=== PATIENT | female | born 1950 | race Caucasian/White ===

== ENCOUNTER 2024-08-11 16:45 | Inpatient (IN) | payer MEDICARE, MEDICAID, SELFPAY ==
--- NOTE | ~2024-08-11 | XR_ITS ---
EXAMINATION: XR surgery orthopedic DATE: 08/12/2024 16:22 INDICATION: Left hip intertrochanteric nailing TECHNIQUE: 5 fluoroscopic images of the left hip and proximal femur were obtained during procedure pe rformed by Dr. Salvador. Radiologist was not present for the imaging or procedure. The amount of fluo roscopy time used during this procedure was 2.0 minutes. Total DAP was 3.485 Gycm^2 COMPARISON: 08/11/2024 FINDINGS: Interval open reduction internal fixation of previous noted intratrochanteric fracture of the proxima l left femur which is now in near-anatomic alignment. The fracture is fixed with an antegrade intrame dullary kirsten and femoral neck dynamic compression screw. No new fractures identified. IMPRESSION: 1. Fluoroscopy utilized during reduction and internal fixation of a comminuted intertrochanteric frac ture of the proximal left femur. Reviewed, dictated and finalized at location B. RTURE CLERK IMPRESSION: 1. Fluoroscopy utilized during reduction and internal fixation of a comminuted intertrochanteric fracture of the proximal left femur.
--- NOTE | ~2024-08-11 | XR_ITS ---
HISTORY: fall, hip pain/deformity COMPARISON: None TECHNIQUE: 2 views of the left hip along with an AP view of the pelvis FINDINGS: Acute minimally displaced intertrochanteric fracture of the left femur with lateral and superior dist raction of the fracture fragment. Diffuse bony demineralization The right hip demonstrates degenerative osteoarthritis but is otherwise unremarkable. Fixation hardware within the lumbar spine. Densely calcified atherosclerotic disease. Calcified fibroid within the right hemipelvis. Fecal stasis within the colon IMPRESSION: Acute intertrochanteric fracture, as detailed above. Reviewed, dictated and finalized at location A. ER MACHINE SET UP OPERATOR
--- NOTE | ~2024-08-11 | XR_ITS ---
CHEST RADIOGRAPH CLINICAL HISTORY: POSSIBLE HIP FX . COMPARISON: None available TECHNIQUE: Single portable view of the chest. FINDINGS The left mid lung is partially obscured due to pacemaker generator. Wires project over the right atrium and right ventricle. The remainder of the cardiomediastinal silhouette is otherwise unremarkable. The lungs are otherwise clear. IMPRESSION: No focal infiltrate or effusion. Reviewed, dictated and finalized at location A. ER OPERATOR ASBESTOS SHINGLE
[2024-08-11 16:46] VITALS: BP 150/86; TEMP 36.4; O2SAT 90
[2024-08-11] MEDS: ONDANSETRON INJ 4 MG/2 ML VIAL IV PUSH (17:27)
[2024-08-11] MEDS: MORPHINE SULFATE (*CRX) 2 MG/ML INJ IV PUSH ×2 (17:27→22:32)
--- NOTE | 2024-08-11 17:38 | ED.LOWEXIN ---
HPI - Extremity Injury (Lower) General Chief Complaint: Extremity Injury, Lower <Loyda Mak PA-C - Last Filed: 08/12/24 00:20> Stated Complaint: left hip pain - deformity <PATRICK Salazar Last Filed: 08/12/24 00:20> Time Seen by Provider: 08/11/24 16:59 <PATRICK Salazar Last Filed: 08/12/24 00:20> Source: patient <PATRICK Salazar Last Filed: 08/12/24 00:20> Mode of arrival: EMS <PATRICK Salazar Last Filed: 08/12/24 00:20> Limitations: no limitations <PATRICK Salazar Last Filed: 08/12/24 00:20> History of Present Illness HPI Narrative: Patient is a 74-year-old female, with past medical history of peripheral neuropathy related to previous spinal surgery, who presents to the ED via EMS with report of left hip pain. 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 She landed on her left side/hip. She did not hit her head or lose consciousness. Denied any dizziness or lightheadedness. Unable to get up off the ground. EMS was called. Patient c/o pain to her L lateral hip. Denies any other injuries. <PATRICK Salazar Last Filed: 08/12/24 00:20> Related Data Home Medications: Home Medications ?Medication ?Instructions ?Recorded ?Confirmed ?Last Taken ?Type amlodipine 10 mg tablet 10 mg PO DAILY 08/11/24 08/12/24 Unknown History bupropion HCl 300 mg 24 hr tablet, 300 mg PO DAILY 08/11/24 08/12/24 Unknown History extended release hydrocodone 10 mg-acetaminophen 1 tablet PO Q6H PRN pain (scale 08/11/24 08/11/24 Unknown History 325 mg tablet score 4-6) lamotrigine 100 mg tablet 100 mg PO Q12H 08/11/24 08/12/24 Unknown History lamotrigine 25 mg tablet 25 mg PO Q12H 08/11/24 08/12/24 Unknown History mirabegron 50 mg tablet,extended 50 mg PO Q24H 08/11/24 08/12/24 Unknown History release 24 hr (Myrbetriq) pregabalin 100 mg capsule 100 mg PO Q6H 08/11/24 08/12/24 Unknown History trazodone 100 mg tablet 100 mg PO HS 08/11/24 08/12/24 Unknown History <Loyda Mak PA-C - Last Filed: 08/12/24 00:20> Allergies/Adverse Reactions: Allergies Allergy/AdvReac Type Severity Reaction Status Date / Time No Known Allergies Allergy Verified 08/11/24 17:25 <Loyda Mak PA-C - Last Filed: 08/12/24 00:20> Review of Systems Review of Systems: All systems reviewed & are unremarkable except as noted in HPI. <Loyda Mak PA-C - Last Filed: 08/12/24 00:20> All systems reviewed & are unremarkable except as noted in HPI and below <Loyda Mak PA-C - Last Filed: 08/12/24 00:20> [facility] Family History Family History: Family History (Updated 08/11/24 @ 23:53 by Lu Urbina RN) Mother Cancer <Loyda Mak PA-C - Last Filed: 08/12/24 00:20> Social History Social History: Social History Smoking packs per day: 1 Smoking cigarettes per day: 20.0 Smoking status: Former smoker Tobacco type: cigarettes Alcohol intake: never Substance use: never Substance use type: does not use Do You Feel Safe in your Home?: Yes Lack of Transportation: No Lack of Food: Never True Current Housing: I Have Housing Concerned About Future Housing: No Difficulty Paying Gas/Electric Bills: No Difficulty Paying for Meds: No Currently Unemployed: No Education: High School Diploma/GED Difficulty w/ Childcare or Family Care: No Spiritual care concerns: No <Loyda Mak PA-C - Last Filed: 08/12/24 00:20> Exam Narrative: GENERAL: Elderly, slightly frail, non-toxic, in no acute distress. HEAD: Normocephalic, atraumatic. RESPIRATORY: Airway patent, respirations nonlabored. Clear to auscultation bilaterally, no rales, rhonchi, wheezing. CARDIOVASCULAR: Regular rate and rhythm without murmurs, rubs, or gallops. Pedal pulses intact and easily palpable. ABDOMINAL: Soft, nontender, nondistended. Normoactive BS. Colostomy in LLQ MUSCULOSKELETAL: Moves all extremities. No gross deformities. Tenderness to palpation along left lateral hip. Slight shortening of LLE with some exertion rotation. No significant tenderness throughout the remainder of leg, though patient reports chronic decreased sensation throughout bilateral lower extremities. SKIN: Warm, dry, normal color. NEURO: A&O X3. Speech clear. Cranial nerves II-XII grossly intact. No ataxic movements. PSYCHIATRIC: Appropriate mood and affect. Normal interaction. <PATRICK Salazar Last Filed: 08/12/24 00:20> Course CAN MARKER/PA Physician Supervision I heard radio report from EMS regarding this patient and that there was strong suspicion for fracture based on initial physical exam. I learned confirmation of fracture seen on imaging and was told by CAROL that patient was obviously being admitted. Witnessed discussion between PA and patient's daughter. Available for consultation while in the department but I otherwise did not personally examine this patient and was not directly involved in their care. <Nika Lan MD - Last Filed: 08/12/24 11:42> Vital Signs Vital signs: Vital Signs Temperature 97.6 F 08/11/24 16:46 Blood Pressure 150/86 H 08/11/24 16:46 Pulse Oximetry 90 08/11/24 16:46 Temperature 99.0 F 08/12/24 05:07 Pulse Rate 72 08/12/24 05:07 Respiratory Rate 18 08/12/24 05:07 Blood Pressure 144/57 H 08/12/24 05:07 Pulse Oximetry 94 08/12/24 08:00 Oxygen Delivery Nasal Cannula 08/12/24 08:00 Oxygen Flow Rate 3 08/12/24 08:00 <Loyda Mak PA-C - Last Filed: 08/12/24 00:20> Vital Signs Temperature 97.6 F 08/11/24 16:46 Blood Pressure 150/86 H 08/11/24 16:46 Pulse Oximetry 90 08/11/24 16:46 Temperature 99.0 F 08/12/24 05:07 Pulse Rate 72 08/12/24 05:07 Respiratory Rate 18 08/12/24 05:07 Blood Pressure 144/57 H 08/12/24 05:07 Pulse Oximetry 94 08/12/24 08:00 Oxygen Delivery Nasal Cannula 08/12/24 08:00 Oxygen Flow Rate 3 08/12/24 08:00 <Nika Lan MD - Last Filed: 08/12/24 11:42> MDM - Extremity Injury (Lower) MDM Narrative Medical decision making narrative: Patient presented to ED status post ground level mechanical fall at doctor's office, pain to left hip. Slight deformity noted. Neurovascularly intact. Good pedal pulses. Vital signs are stable upon arrival. X-ray of left hip/pelvis obtained and confirming L hip intertrochanteric fx. Consistent with exam and injury. Discussed imaging findings with patient and need for admission/surgery. Given pain medication in the ED. Discussed case with Dr. Salvador, orthopedics, will consult. Likely surgery tomorrow. Laboratory studies showed hypokalemia at 3.0. Oral and IV replacement given. Magnesium is within normal range. Urine appears infectious. Calderon catheter was placed. Will treat. Given dose of Rocephin. Cultures were obtained. Patient has history of frequent UTIs. She does typically straight cath herself a few times today. No previous urine cultures in the system to compare to. Chest x-ray is clear. No concerning signs on EKG. Discussed case with Dr. Larios, hospitalist, accepted patient for admission. Patient and family in agreement with plan. <Loyda Mak PA-C - Last Filed: 08/12/24 00:20> Medical Records Attestation: I reviewed the patient's medical records. <Loyda Mak PA-C - Last Filed: 08/12/24 00:20> Lab Data Attestation: I reviewed the patient's lab results. <Loyda Mak PA-C - Last Filed: 08/12/24 00:20> Result diagrams: 08/11/24 21:03 08/11/24 21:03 <Loyda Mak PA-C - Last Filed: 08/12/24 00:20> Labs: Lab Results 08/11/24 08/11/24 08/11/24 Range/Units 20:28 21:02 21:03 WBC 12.3 H (4.5-10.0) K/mm3 RBC 5.08 (4.2-5.4) M/mm3 Hgb 15.1 H (12.0-15.0) g/dL Hct 46.7 (37.0-47.0) % MCV 91.9 (80-100) fl MCH 29.7 (26-34) pg MCHC 32.3 (32-36) g/dl RDW 13.9 (11.5-14.5) % Plt Count 162 (150-375) k/mm3 MPV 9.5 (7.4-10.4) fl Immature Gran % (Auto) 0.4 (0-0.5) % Neut % (Auto) 69.2 (45.5-73.1) % Lymph % (Auto) 23.2 (18.3-44.2) % Cobb % (Auto) 5.7 (2.6-8.5) % Eos % (Auto) 1.1 (0-4.4) % Baso % (Auto) 0.4 (0.2-1.2) % Lymph # (Auto) 2.85 (0.9-3.2) K/mm3 [place] # (Auto) 0.7 H (0.1-0.6) K/mm3 Eos # (Auto) 0.1 (0-0.3) K/mm3 Baso # (Auto) 0.1 (0.0-0.1) K/mm3 Abs Immat Gran (auto) 0.05 H (0.00-0.031) K/mm3 Absolute Neuts (auto) 8.5 H (1.3-6.7) K/mm3 Absolute Nucleated RBC 0.000 (0.0-0.012) K/mm3 Nucleated RBC % 0.0 (0.0-0.2) % PT 13.0 (11.1-14.7) Seconds INR 0.9 APTT 29.2 (22.3-36.8) Seconds Sodium 141 (137-145) mmol/L Potassium 3.0 L (3.4-5.0) mmol/L Chloride 102 (98-107) mmol/L Carbon Dioxide 30 (22-30) mmol/L Anion Gap 9 (4-12) mmol/L BUN 12 (7-17) mg/dL Creatinine 0.71 (0.7-1.0) mg/dL Estim Creat Clear Calc 47 ml/min Estimated GFR > 60 (59 - ) Glucose 125 H (65-110) mg/dL Calcium 9.1 (8.4-10.2) mg/dL Magnesium 2.0 (1.6-2.3) mg/dL Total Bilirubin 0.7 (0.2-1.3) mg/dL AST 26 (14-36) U/L ALT 16 (6-35) U/L Alkaline Phosphatase 96 (38-126) U/L Total Protein 7.0 (6.3-8.2) g/dL Albumin 4.0 (3.5-5.1) g/dL Urine Color Yellow (Yellow) Urine Appearance Clear (Clear) Urine pH 6.5 (5.0-9.0) Ur Specific [place] 1.009 (1.001-1.035) Urine Protein Negative (Negative) mg/dL Urine Glucose (UA) Negative (Negative) mg/dL Urine Ketones Trace H (Negative) mg/dL Ur Blood (Man) Negative (Negative) Urine Nitrate Negative (Negative) Urine Bilirubin Negative (Negative) Urine Urobilinogen 0.2 (<2.0) mg/dL Leukocyte Esterase Rfl Trace H (Negative) FELIPE/UL Urine RBC 0-2 (0-2) /hpf Urine WBC 11-20 H (0-3) /hpf Ur Squamous Epith Cells None seen (Few) /hpf Urine Bacteria 2+ H /hpf Urine Casts 0-2 <Loyda Mak PA-C - Last Filed: 08/12/24 00:20> Lab Results 08/11/24 08/11/24 08/11/24 Range/Units 20:28 21:02 21:03 WBC 12.3 H (4.5-10.0) K/mm3 RBC 5.08 (4.2-5.4) M/mm3 Hgb 15.1 H (12.0-15.0) g/dL Hct 46.7 (37.0-47.0) % MCV 91.9 (80-100) fl MCH 29.7 (26-34) pg MCHC 32.3 (32-36) g/dl RDW 13.9 (11.5-14.5) % Plt Count 162 (150-375) k/mm3 MPV 9.5 (7.4-10.4) fl Immature Gran % (Auto) 0.4 (0-0.5) % Neut % (Auto) 69.2 (45.5-73.1) % Lymph % (Auto) 23.2 (18.3-44.2) % Cobb % (Auto) 5.7 (2.6-8.5) % Eos % (Auto) 1.1 (0-4.4) % Baso % (Auto) 0.4 (0.2-1.2) % Lymph # (Auto) 2.85 (0.9-3.2) K/mm3 [place] # (Auto) 0.7 H (0.1-0.6) K/mm3 Eos # (Auto) 0.1 (0-0.3) K/mm3 Baso # (Auto) 0.1 (0.0-0.1) K/mm3 Abs Immat Gran (auto) 0.05 H (0.00-0.031) K/mm3 Absolute Neuts (auto) 8.5 H (1.3-6.7) K/mm3 Absolute Nucleated RBC 0.000 (0.0-0.012) K/mm3 Nucleated RBC % 0.0 (0.0-0.2) % PT 13.0 (11.1-14.7) Seconds INR 0.9 APTT 29.2 (22.3-36.8) Seconds Sodium 141 (137-145) mmol/L Potassium 3.0 L (3.4-5.0) mmol/L Chloride 102 (98-107) mmol/L Carbon Dioxide 30 (22-30) mmol/L Anion Gap 9 (4-12) mmol/L BUN 12 (7-17) mg/dL Creatinine 0.71 (0.7-1.0) mg/dL Estim Creat Clear Calc 47 ml/min Estimated GFR > 60 (59 - ) Glucose 125 H (65-110) mg/dL Calcium 9.1 (8.4-10.2) mg/dL Magnesium 2.0 (1.6-2.3) mg/dL Total Bilirubin 0.7 (0.2-1.3) mg/dL AST 26 (14-36) U/L ALT 16 (6-35) U/L Alkaline Phosphatase 96 (38-126) U/L Total Protein 7.0 (6.3-8.2) g/dL Albumin 4.0 (3.5-5.1) g/dL Urine Color Yellow (Yellow) Urine Appearance Clear (Clear) Urine pH 6.5 (5.0-9.0) Ur Specific [place] 1.009 (1.001-1.035) Urine Protein Negative (Negative) mg/dL Urine Glucose (UA) Negative (Negative) mg/dL Urine Ketones Trace H (Negative) mg/dL Ur Blood (Man) Negative (Negative) Urine Nitrate Negative (Negative) Urine Bilirubin Negative (Negative) Urine Urobilinogen 0.2 (<2.0) mg/dL Leukocyte Esterase Rfl Trace H (Negative) FELIPE/UL Urine RBC 0-2 (0-2) /hpf Urine WBC 11-20 H (0-3) /hpf Ur Squamous Epith Cells None seen (Few) /hpf Urine Bacteria 2+ H /hpf Urine Casts 0-2 <Nika Lan MD - Last Filed: 08/12/24 11:42> Imaging Data Attestation: I personally reviewed and interpreted this imaging study as follows: <Loyda Mak PA-C - Last Filed: 08/12/24 00:20> Radiologist's impression: ITS Impressions Chest X-Ray 08/11/24 18:23 IMPRESSION: No focal infiltrate or effusion. Hip/Pelvis X-Ray 08/11/24 18:24 IMPRESSION: Acute intertrochanteric fracture, as detailed above. <Loyda Mak PA-C - Last Filed: 08/12/24 00:20> Discharge Plan Discharge Clinical Impression: Fall from ground level, Hypokalemia Closed intertrochanteric fracture of left femur Qualifiers: Encounter type: initial encounter Fracture alignment: displaced Qualified Code(s): S72.142A - Displaced intertrochanteric fracture of left femur, initial encounter for closed fracture UTI (urinary tract infection) Qualifiers: Urinary tract infection type: acute cystitis Hematuria presence: without hematuria Qualified Code(s): N30.00 - Acute cystitis without hematuria <Loyda Mak PA-C - Last Filed: 08/12/24 00:20> Patient Disposition: Still a Patient <PATRICK Salazar Last Filed: 08/12/24 00:20> Condition: Stable <PATRICK Salazar Last Filed: 08/12/24 00:20>
[2024-08-11 18:00] VITALS: O2SAT 83; O2SAT 96
--- NOTE | 2024-08-11 18:16 | ECG_ITS ---
Test Date: 2024-08-11 19:30:22 Measurements Intervals [place] Rate: 72 P: 71 VA: 192 QRS: 36 QRSD: 112 T: 62 QT: 377 QTc: 413 Interpretive Statements SINUS RHYTHM MODERATE INTRAVENTRICULAR CONDUCTION DELAY [105+ ms QRS DURATION, 80+ ms Q/S IN V1/V2, NO Q AND 60+ ms R IN I/aVL/V5/V6] NONSPECIFIC ST & T-WAVE ABNORMALITY No previous ECG available for comparison Electronically Signed On 08-12-2024 14:19:53 ESL TEACHER by Isa Villalta M.D.
[2024-08-11 19:28] VITALS: BP 124/72; PULSE 73; RESP 17; O2SAT 98
[2024-08-11 20:38] LABS: Add Urine Microscopic? YES; Appearance Urine Clear (Clear); Bacteria Urine 2+ /hpf; Bilirubin Urine Negative (Negative); Blood Urine Negative (Negative); Color Urine Yellow (Yellow); Glucose Urine UA Negative (Negative); Ketones Urine Trace mg/dL (Negative); Leukocyte Esterase Ur Trace LEU/UL (Negative); Nitrate Urine Negative (Negative); Non Pathogenic Casts 0-2; Protein Urine Negative (Negative); RBC Urine 0-2 /hpf (0-2); Specific Grav Ur 1.009 (1.001-1.035); Squamous Epithelial Cell Urine None Seen /hpf (Few); Urobilinogen Urine 0.2 mg/dL (<2.0); pH Urine 6.5 (5.0-9.0)
[2024-08-11 20:55] VITALS: O2SAT 96
[2024-08-11 21:17] LABS: Basophils Absolute Auto 0.1 K/mm3 (0.0-0.1); Basophils Percent Auto 0.4 % (0.2-1.2); Eosinophils Absolute Auto 0.1 K/mm3 (0-0.3); Eosinophils Percent Auto 1.1 % (0-4.4); Hematocrit 46.7 % (37.0-47.0); Hemoglobin 15.1 g/dL (12.0-15.0); Immature Granulocyte Absolute 0.05 K/mm3 (0.00-0.031); Immature Granulocyte Percent A 0.4 % (0-0.5); Lymphocytes Absolute Auto 2.85 K/mm3 (0.9-3.2); Lymphocytes Percent Auto 23.2 % (18.3-44.2); Mean Corpuscular HGB Conc 32.3 g/dl (32-36); Mean Corpuscular Hemoglobin 29.7 pg (26-34); Mean Corpuscular Volume 91.9 fl (80-100); Mean Platelet Volume 9.5 fl (7.4-10.4); Monocytes Absolute Auto 0.7 K/mm3 (0.1-0.6); Monocytes Percent Auto 5.7 % (2.6-8.5); Neutrophils Absolute Auto 8.5 K/mm3 (1.3-6.7); Neutrophils Percent Auto 69.2 % (45.5-73.1); Platelet Count Result 162 k/mm3 (150-375); Red Blood Count 5.08 M/mm3 (4.2-5.4); Red Cell Distribution Width 13.9 % (11.5-14.5); White Blood Count 12.3 K/mm3 (4.5-10.0)
[2024-08-11 21:27] LABS: Alanine Aminotransferase 16 U/L (6-35); Alkaline Phosphatase 96 U/L (38-126); Anion Gap 9 mmol/L (4-12); Aspartate Amino Transferase 26 U/L (14-36); Bilirubin,Total 0.7 mg/dL (0.2-1.3); Blood Urea Nitrogen 12 mg/dL (7-17); Calcium 9.1 mg/dL (8.4-10.2); Carbon Dioxide 30 mmol/L (22-30); Chloride 102 mmol/L (98-107); Estimated CRCL calculation 47 ml/min; Estimated Glomerular Filt Rate > 60; Glucose 125 mg/dL (65-110); INR 0.9; Sodium 141 mmol/L (137-145)
[2024-08-11 21:29] LABS: Partial Thromboplastin Time 29.2 Seconds (22.3-36.8)
--- NOTE | 2024-08-11 22:04 | P.HP_ITS ---
H&P: HPI History of Present Illness Date/Time: 08/11/24 22:04 Chief Complaint: Fall Narrative: This is a 74-year-old female with past medical history significant for hypertension, chronic pain. Patient was at doctor's office when she had a fall while in the bathroom trying to get a sample of urine patient had a mechanical fall ground level she was unable to get up on her on. Patient was brought to the emergency room for evaluation preliminary workup was significant for left hip fracture a urinalysis was significant for leukocytes present in it. Patient has been admitted for further evaluation management and treatment. CHEST RADIOGRAPH CLINICAL HISTORY: POSSIBLE HIP FX . COMPARISON: None available TECHNIQUE: Single portable view of the chest. FINDINGS The left mid lung is partially obscured due to pacemaker generator. Wires project over the right atrium and right ventricle. The remainder of the cardiomediastinal silhouette is otherwise unremarkable. The lungs are otherwise clear. IMPRESSION: No focal infiltrate or effusion. HISTORY: fall, hip pain/deformity COMPARISON: None TECHNIQUE: 2 views of the left hip along with an AP view of the pelvis FINDINGS: Acute minimally displaced intertrochanteric fracture of the left femur with lateral and superior distraction of the fracture fragment. Diffuse bony demineralization The right hip demonstrates degenerative osteoarthritis but is otherwise unremarkable. Fixation hardware within the lumbar spine. Densely calcified atherosclerotic disease. Calcified fibroid within the right hemipelvis. Fecal stasis within the colon IMPRESSION: Acute intertrochanteric fracture, as detailed above. Review of Systems Review of Systems: Fall, unable to stand up, unable to bear weight on left leg PMFSH Family History Family History (Updated 08/11/24 @ 23:53 by Lu Urbina RN) Mother Cancer Social History Social History Smoking packs per day: 1 Smoking cigarettes per day: 20.0 Smoking status: Former smoker Tobacco type: cigarettes Alcohol intake: never Substance use: never Substance use type: does not use Do You Feel Safe in your Home?: Yes Lack of Transportation: No Lack of Food: Never True Current Housing: I Have Housing Concerned About Future Housing: No Difficulty Paying Gas/Electric Bills: No Difficulty Paying for Meds: No Currently Unemployed: No Education: High School Diploma/GED Difficulty w/ Childcare or Family Care: No Spiritual care concerns: No Meds Home Medications and Allergies Home Medications ?Medication ?Instructions ?Recorded ?Confirmed ?Type amlodipine 10 mg tablet 10 mg PO DAILY 08/11/24 08/12/24 History bupropion HCl 300 mg 24 hr tablet, 300 mg PO DAILY 08/11/24 08/12/24 History extended release hydrocodone 10 mg-acetaminophen 1 tablet PO Q6H PRN pain (scale 08/11/24 08/11/24 History 325 mg tablet score 4-6) lamotrigine 100 mg tablet 100 mg PO Q12H 08/11/24 08/12/24 History lamotrigine 25 mg tablet 25 mg PO Q12H 08/11/24 08/12/24 History mirabegron 50 mg tablet,extended 50 mg PO Q24H 08/11/24 08/12/24 History release 24 hr (Myrbetriq) pregabalin 100 mg capsule 100 mg PO Q6H 08/11/24 08/12/24 History trazodone 100 mg tablet 100 mg PO HS 08/11/24 08/12/24 History Allergies Allergy/AdvReac Type Severity Reaction Status Date / Time No Known Allergies Allergy Verified 08/11/24 17:25 Vital Signs Vital Signs - 24 hr 08/11/24 16:46 08/11/24 18:00 08/11/24 18:00 Temperature 97.6 F Pulse Rate Respiratory Rate Blood Pressure 150/86 H Pulse Oximetry 90 83 L 96 Oxygen Delivery Room Air Nasal Cannula Oxygen Flow Rate 3 08/11/24 19:28 08/11/24 20:55 Temperature Pulse Rate 73 Respiratory Rate 17 Blood Pressure 124/72 Pulse Oximetry 98 96 Oxygen Delivery Oxygen Flow Rate Exam Narrative: Patient is laying in a stretcher Const: General: comfortable, no acute distress, well developed, alert, awake and average body habitus Nutritional Appearance: average body habitus Orientation/consciousness: patient oriented x3 HENMT: Head: normal to inspection, normocephalic and atraumatic Ears: hearing grossly normal bilaterally Face/Nose/Sinus: normal facial exam Face and sinus: normal facial exam Eyes: General: appearance normal, both eyes and all related structures Pupils: Equal, round and reactive pupils present EOM: EOMs intact bilaterally Neck: Neck: full ROM, no lymphadenopathy and no JVD Thyroid: thyroid normal Lymphatic: no lymphadenopathy noted Resp: Effort & Inspection: normal respiratory effort and able to speak in complete sentences Auscultation: clear to auscultation bilaterally Cardio: Jugular venous distension: no JVD Rate: regular rate Rhythm: regular rhythm Heart sounds: S1 normal heart sound present and S2 normal heart sound present GI: Inspection: other (Colostomy in place) GI Palp: Yes Soft to palpation and Yes No hepatosplenomegaly present : General: Yes deferred Skin: Rashes: no rashes Wounds: no wounds Neuro: General: patient oriented x3 and CN's II-XI intact bilaterally Cranial nerves: Yes CN's II-XII intact bilaterally and Yes Equal, round and reactive pupils present Cognition (Neuro): normal cognition Speech: normal speech Gait exam (Neuro): Unable to assess gait Motor exam (neuro): 5/5 motor strength present throughout Extrem: General: normal to inspection, full ROM, no joint enlargement and no pedal edema Other: Left lower extremity externally rotated and shortened H&P: Results Labs Labs: Short CBC 08/11/24 Range/Units 21:03 WBC 12.3 H (4.5-10.0) K/mm3 Hgb 15.1 H (12.0-15.0) g/dL Hct 46.7 (37.0-47.0) % Plt Count 162 (150-375) k/mm3 BMP 08/11/24 21:03 Sodium 141 Potassium 3.0 L Chloride 102 Carbon Dioxide 30 BUN 12 Creatinine 0.71 Glucose 125 H Calcium 9.1 Liver Function 08/11/24 Range/Units 21:03 Total Bilirubin 0.7 (0.2-1.3) mg/dL AST 26 (14-36) U/L ALT 16 (6-35) U/L Alkaline Phosphatase 96 (38-126) U/L Albumin 4.0 (3.5-5.1) g/dL Urine 08/11/24 Range/Units 20:28 Urine Color Yellow (Yellow) Urine Appearance Clear (Clear) Urine pH 6.5 (5.0-9.0) Ur Specific [place] 1.009 (1.001-1.035) Urine Protein Negative (Negative) mg/dL Urine Glucose (UA) Negative (Negative) mg/dL Assessment and Plan Assessment and plan (1) Closed intertrochanteric fracture of left femur: Code(s): S72.142A - Displaced intertrochanteric fracture of left femur, initial encounter for closed fracture Status: Acute Assessment and Plan: Admit patient to regular medical floor Bed rest Pain management Orthopedic surgery consult (2) UTI (urinary tract infection): Code(s): N39.0 - Urinary tract infection, site not specified Status: Acute Assessment and Plan: Patient started on Rocephin Cultures in progress (3) Fall from ground level: Code(s): W18.30XA - Fall on same level, unspecified, initial encounter Status: Acute Assessment and Plan: No loss of consciousness CT of the head reviewed Fall precautions Hospitalist MIPS Advance Care Plan I have confirmed that the patient's Advanced Care Plan is present, code status is documented, or surrogate decision maker is listed in patient medical record.: Yes Medication Reconciliation I have utilized all available resources to obtain, update and review the pa elvernts current medications (includes all prescriptions, OTC, herbals, cannabis, and nutritional supplements).: Yes
[2024-08-11] MEDS: POTASSIUM CHLORIDE 20 MEQ ER TABLET 40 MEQ PO (22:22)
[2024-08-11 22:27] VITALS: BP 151/77; PULSE 84; RESP 18; O2SAT 96
[2024-08-11 22:50] VITALS: BMI 24.3
[2024-08-11 23:29] VITALS: BP 164/72; PULSE 79; RESP 20; TEMP 37.2; O2SAT 95
[2024-08-11] MEDS: KCL 20 MEQ/SW 100 ML 100 ML 50 MEQ IVPB (23:54)
[2024-08-11] MEDS: SODIUM CHLORIDE 0.9% IV 1,000 ML 100 ML IV CONT (23:54)
[2024-08-12] VITALS (19 sets, daily range): BP systolic 110–176; BP diastolic 57–91; PULSE 72–96; RESP 14–22; TEMP 36.6–37.5; O2SAT 91–96
--- NOTE | 2024-08-12 08:28 | P.CONOP_ITS ---
Assessment and Plan Assessment and plan (1) Closed intertrochanteric fracture of left femur: Qualifiers: Encounter type: initial encounter Fracture alignment: displaced Q ualified Code(s): S72.142A - Displaced intertrochanteric fracture of left femur, initial encounter for closed fracture Code(s): S72.142A - Displaced intertrochanteric fracture of left femur, initial encounter for closed fracture Status: Acute Assessment and Plan: Patient has IT fracture Left hip. She was ambulatory before fall. Recommend Open Reduction, Internal Fixation of the LEFT hip History of Present Illness HPI Consult date: 08/12/24 Chief complaint: L intertrochanteric hip fx, glf, hypokalemia Narrative: Patien tripped and fell suffering an intertrochanteric fracture of the left hip Review of Systems 2 Review of Systems: All systems reviewed & are unremarkable except as noted in HPI. All systems reviewed & are unremarkable except as noted in HPI and below PMFSH Family History Family History (Updated 08/11/24 @ 23:53 by Lu Urbina RN) Mother Cancer Social History Social History Smoking packs per day: 1 Smoking cigarettes per day: 20.0 Smoking status: Former smoker Tobacco type: cigarettes Alcohol intake: never Substance use: never Substance use type: does not use Do You Feel Safe in your Home?: Yes Lack of Transportation: No Lack of Food: Never True Current Housing: I Have Housing Concerned About Future Housing: No Difficulty Paying Gas/Electric Bills: No Difficulty Paying for Meds: No Currently Unemployed: No Education: High School Diploma/GED Difficulty w/ Childcare or Family Care: No Spiritual care concerns: No Meds Home Medications and Allergies Home Medications ?Medication ?Instructions ?Recorded ?Confirmed ?Type amlodipine 10 mg tablet 10 mg PO DAILY 08/11/24 08/12/24 History bupropion HCl 300 mg 24 hr tablet, 300 mg PO DAILY 08/11/24 08/12/24 History extended release hydrocodone 10 mg-acetaminophen 1 tablet PO Q6H PRN pain (scale 08/11/24 08/11/24 History 325 mg tablet score 4-6) lamotrigine 100 mg tablet 100 mg PO Q12H 08/11/24 08/12/24 History lamotrigine 25 mg tablet 25 mg PO Q12H 08/11/24 08/12/24 History mirabegron 50 mg tablet,extended 50 mg PO Q24H 08/11/24 08/12/24 History release 24 hr (Myrbetriq) pregabalin 100 mg capsule 100 mg PO Q6H 08/11/24 08/12/24 History trazodone 100 mg tablet 100 mg PO HS 08/11/24 08/12/24 History Allergies Allergy/AdvReac Type Severity Reaction Status Date / Time No Known Allergies Allergy Verified 08/11/24 17:25 Vital Signs Vital Signs - 24 hr 08/11/24 16:46 08/11/24 18:00 08/11/24 18:00 Temperature 97.6 F Pulse Rate Respiratory Rate Blood Pressure 150/86 H Pulse Oximetry 90 83 L 96 Oxygen Delivery Room Air Nasal Cannula Oxygen Flow Rate 3 08/11/24 19:28 08/11/24 20:55 08/11/24 22:27 Temperature Pulse Rate 73 84 Respiratory Rate 17 18 Blood Pressure 124/72 151/77 H Pulse Oximetry 98 96 96 Oxygen Delivery Oxygen Flow Rate 08/11/24 23:29 08/12/24 00:54 08/12/24 04:00 Temperature 99.0 F Pulse Rate 79 79 75 Respiratory Rate 20 20 Blood Pressure 164/72 H Pulse Oximetry 95 95 Oxygen Delivery Nasal Cannula Oxygen Flow Rate 3 08/12/24 05:07 Temperature 99.0 F Pulse Rate 72 Respiratory Rate 18 Blood Pressure 144/57 H Pulse Oximetry 92 Oxygen Delivery Oxygen Flow Rate Exam 2 Narrative: Pain with hip motion Wiggles toes Has weakness from spine surgery Eyes: General: appearance normal, both eyes and all related structures Neck: Neck: supple Resp: Effort & Inspection: normal respiratory effort Cardio: Rate: regular rate Rhythm: regular rhythm Results Labs 08/11/24 21:03 08/11/24 21:03 Labs: Abnormal lab results 08/11/24 08/11/24 Range/Units 20:28 21:03 WBC 12.3 H (4.5-10.0) K/mm3 Hgb 15.1 H (12.0-15.0) g/dL [place] # (Auto) 0.7 H (0.1-0.6) K/mm3 Abs Immat Gran (auto) 0.05 H (0.00-0.031) K/mm3 Absolute Neuts (auto) 8.5 H (1.3-6.7) K/mm3 Potassium 3.0 L (3.4-5.0) mmol/L Glucose 125 H (65-110) mg/dL Urine Ketones Trace H (Negative) mg/dL Leukocyte Esterase Rfl Trace H (Negative) FELIPE/UL Urine WBC 11-20 H (0-3) /hpf Urine Bacteria 2+ H /hpf H & H 08/11/24 Range/Units 21:03 Hgb 15.1 H (12.0-15.0) g/dL Hct 46.7 (37.0-47.0) % Coagulation 08/11/24 Range/Units 21:03 INR 0.9 All other labs normal.
[2024-08-12] MEDS: MORPHINE SULFATE (*CRX) 2 MG/ML INJ IV PUSH (09:09)
[2024-08-12] MEDS: HYDROcodone/acetaminophen (*CRX) 10-325 MG TABLET 1 TAB PO (10:11)
[2024-08-12] MEDS: SODIUM CHLORIDE 0.9% IV 1,000 ML 100 ML IV CONT ×2 (10:13→20:24)
--- NOTE | 2024-08-12 10:46 | PM.IMPN ---
Progress Note: A&P Assessment and Plan (1) Closed intertrochanteric fracture of left femur: Qualifiers: Encounter type: initial encounter Fracture alignment: displaced Qualified Code(s): S72.142A - Displaced intertrochanteric fracture of left femur, initial encounter for closed fracture Code(s): S72.142A - Displaced intertrochanteric fracture of left femur, initial encounter for closed fracture Status: Acute Assessment and Plan: Admit patient to regular medical floor Bed rest Pain management Orthopedic surgery consult- Recommend Open Reduction, Internal Fixation of the LEFT hip later today (2) UTI (urinary tract infection): Qualifiers: Hematuria presence: without hematuria Urinary tract infection type: acute cystitis Qualified Code(s): N30.00 - Acute cystitis without hematuria Code(s): N39.0 - Urinary tract infection, site not specified Status: Acute Assessment and Plan: Patient started on Rocephin Cultures in progress (3) Fall from ground level: Code(s): W18.30XA - Fall on same level, unspecified, initial encounter Status: Acute Assessment and Plan: No loss of consciousness CT of the head reviewed Fall precautions Time Spent With Patient Time with patient: 25 - 35 minutes Subjective Date/time seen: 08/12/24 10:46 Interval history: Fall 74-year-old female with PMH/o hypertension, chronic pain. Patient was at doctor's office when she had a fall while in the bathroom trying to get a sample of urine patient had a mechanical fall ground level she was unable to get up on her on. Patient was brought to the emergency room for evaluation preliminary workup was significant for left hip fracture a urinalysis was significant for leukocytes present in it. Patient has been admitted for further evaluation management and treatment. Ortho was consulted and pt was seen-DR Salvador- Recommend Open Reduction, Internal Fixation of the LEFT hip later today Review of Systems Review of Systems: Fall, unable to stand up, unable to bear weight on left leg Exam Narrative: Patient is laying in a stretcher Const: General: comfortable, no acute distress, well developed, alert, awake and average body habitus Nutritional Appearance: average body habitus Orientation/consciousness: patient oriented x3 HENMT: Head: normal to inspection, normocephalic and atraumatic Ears: hearing grossly normal bilaterally Face/Nose/Sinus: normal facial exam Face and sinus: normal facial exam Eyes: General: appearance normal, both eyes and all related structures Pupils: Equal, round and reactive pupils present EOM: EOMs intact bilaterally Neck: Neck: full ROM, no lymphadenopathy and no JVD Thyroid: thyroid normal Lymphatic: no lymphadenopathy noted Resp: Effort & Inspection: normal respiratory effort and able to speak in complete sentences Auscultation: clear to auscultation bilaterally Cardio: Jugular venous distension: no JVD Rate: regular rate Rhythm: regular rhythm Heart sounds: S1 normal heart sound present and S2 normal heart sound present GI: Inspection: other (Colostomy in place) : General: Yes deferred Skin: Rashes: no rashes Wounds: no wounds Neuro: General: patient oriented x3, CN's II-XI intact bilaterally and Unable to assess gait Cranial nerves: Yes CN's II-XII intact bilaterally and Yes Equal, round and reactive pupils present Cognition (Neuro): normal cognition Speech: normal speech Gait exam (Neuro): Unable to assess gait Motor exam (neuro): 5/5 motor strength present throughout Extrem: General: normal to inspection, full ROM, no joint enlargement and no pedal edema Other: Left lower extremity externally rotated and shortened Objective Data Vital Signs Vital Signs: Vital Signs - 24 hr 08/11/24 16:46 08/11/24 18:00 08/11/24 18:00 Temperature 97.6 F Pulse Rate Respiratory Rate Blood Pressure 150/86 H Pulse Oximetry 90 83 L 96 Oxygen Delivery Room Air Nasal Cannula Oxygen Flow Rate 3 08/11/24 19:28 08/11/24 20:55 08/11/24 22:27 Temperature Pulse Rate 73 84 Respiratory Rate 17 18 Blood Pressure 124/72 151/77 H Pulse Oximetry 98 96 96 Oxygen Delivery Oxygen Flow Rate 08/11/24 23:29 08/12/24 00:54 08/12/24 04:00 Temperature 99.0 F Pulse Rate 79 79 75 Respiratory Rate 20 20 Blood Pressure 164/72 H Pulse Oximetry 95 95 Oxygen Delivery Nasal Cannula Oxygen Flow Rate 3 08/12/24 05:07 08/12/24 08:00 Temperature 99.0 F Pulse Rate 72 Respiratory Rate 18 Blood Pressure 144/57 H Pulse Oximetry 92 94 Oxygen Delivery Nasal Cannula Oxygen Flow Rate 3 Intake/Output Intake/Output: Intake & Output 01/12/25 01/13/25 01/14/25 01/15/25 23:59 23:59 23:59 23:59 Intake Total 50 1000 Output Total 800 Balance 50 200 Meds/Results Medications: Active Medications Generic Name Dose Route Start Last Admin Trade Name Yousuf PRN Reason Stop Dose Admin Dextrose 12.5 gm 08/11/24 22:05 Dextrose 50% 25 Gm/50 Ml Syringe IV PUSH PRN PRN Hypoglycemia Protocol Glucagon 1 mg 08/11/24 22:05 Glucagon For Inj 1 Mg Vial IM PRN PRN Hypoglycemia Protocol Glucose 15 gm 08/11/24 22:05 Glucose Oral Gel 15 Gm Of Glucse In 37.5 Gm Tube PO PRN PRN Hypoglycemia Protocol Sodium Chloride 1,000 mls @ 100 mls/hr 08/11/24 21:35 08/12/24 10:13 Normal Saline Iv IV CONT 100 mls/hr .Q10H SEPIDEH Administration Ceftriaxone Sodium 1 gm in 50 mls @ 100 mls/hr 08/12/24 21:00 Rocephin 1 Gm/Ns 50 Ml IVPB Q24H SEPIDEH Dextrose 1,000 mls @ 100 mls/hr 08/11/24 22:05 Dextrose 5% 1,000 Ml IVPB PRN PRN Hypoglycemia Protocol Morphine Sulfate 2 mg 08/11/24 22:05 08/12/24 09:09 Morphine Sulfate (*Crx) 2 Mg/Ml Inj IV PUSH 2 mg Q2H PRN Administration Pain Rated 7-10 Ondansetron HCl 4 mg 08/11/24 22:05 Ondansetron Inj 4 Mg/2 Ml Vial IV PUSH Q4H PRN Nausea Radiology Results: ITS Impressions Chest X-Ray 08/11/24 18:23 IMPRESSION: No focal infiltrate or effusion. Hip/Pelvis X-Ray 08/11/24 18:24 IMPRESSION: Acute intertrochanteric fracture, as detailed above. Labs Labs: Laboratory Results - last 24 hr 08/11/24 08/11/24 08/11/24 20:28 21:02 21:03 WBC 12.3 H RBC 5.08 Hgb 15.1 H Hct 46.7 MCV 91.9 MCH 29.7 MCHC 32.3 RDW 13.9 Plt Count 162 MPV 9.5 Immature Gran % (Auto) 0.4 Neut % (Auto) 69.2 Lymph % (Auto) 23.2 [place] % (Auto) 5.7 Eos % (Auto) 1.1 Baso % (Auto) 0.4 Lymph # (Auto) 2.85 [place] # (Auto) 0.7 H Eos # (Auto) 0.1 Baso # (Auto) 0.1 Abs Immat Gran (auto) 0.05 H Absolute Neuts (auto) 8.5 H Absolute Nucleated RBC 0.000 Nucleated RBC % 0.0 PT 13.0 INR 0.9 APTT 29.2 Sodium 141 Potassium 3.0 L Chloride 102 Carbon Dioxide 30 Anion Gap 9 BUN 12 Creatinine 0.71 Estim Creat Clear Calc 47 Estimated GFR > 60 Glucose 125 H Calcium 9.1 Magnesium 2.0 Total Bilirubin 0.7 AST 26 ALT 16 Alkaline Phosphatase 96 Total Protein 7.0 Albumin 4.0 Urine Color Yellow Urine Appearance Clear Urine pH 6.5 Ur Specific [place] 1.009 Urine Protein Negative Urine Glucose (UA) Negative Urine Ketones Trace H Ur Blood (Man) Negative Urine Nitrate Negative Urine Bilirubin Negative Urine Urobilinogen 0.2 Leukocyte Esterase Rfl Trace H Urine RBC 0-2 Urine WBC 11-20 H Ur Squamous Epith Cells None seen Urine Bacteria 2+ H Urine Casts 0-2 Quality VTE Prophylaxis VTE prophylaxis: mechanical ordered and pharmacologic ordered (per ortho recommendations)
--- NOTE | 2024-08-12 14:21 | WPDANESEPPF ---
Anes - Initial Pre Proc Eval Procedure: Operation Date: 08/12/24 14:30 Proposed Procedures p Left Intertrochanteric Nail - Rudy Salvador MD Date/Time: 08/12/24 14:21 Surgeon: Marquita King MD Pre Op Diagnosis: L intertrochanteric hip fx, glf, hypokalemia Patient Data Age: 74 Gender: F Height: 1.6 m Weight: 62.4 kg Last Vital Signs Temp 99.5 F 08/12/24 13:20 Pulse 81 08/12/24 13:20 Resp 16 08/12/24 13:20 BP 128/91 H 08/12/24 13:20 Pulse Ox 95 08/12/24 13:20 O2 Del Method Nasal Cannula 08/12/24 13:20 O2 Flow Rate 3 08/12/24 13:20 Allergies Allergy/AdvReac Type Severity Reaction Status Date / Time No Known Allergies Allergy Verified 08/12/24 13:24 Home Medications ?Medication ?Instructions ?Recorded ?Confirmed ?Type amlodipine 10 mg tablet 10 mg PO DAILY 08/11/24 08/12/24 History bupropion HCl 300 mg 24 hr tablet, 300 mg PO DAILY 08/11/24 08/12/24 History extended release hydrocodone 10 mg-acetaminophen 1 tablet PO Q6H PRN pain (scale 08/11/24 08/11/24 History 325 mg tablet score 4-6) lamotrigine 100 mg tablet 100 mg PO Q12H 08/11/24 08/12/24 History lamotrigine 25 mg tablet 25 mg PO Q12H 08/11/24 08/12/24 History mirabegron 50 mg tablet,extended 50 mg PO Q24H 08/11/24 08/12/24 History release 24 hr (Myrbetriq) pregabalin 100 mg capsule 100 mg PO Q6H 08/11/24 08/12/24 History trazodone 100 mg tablet 100 mg PO HS 08/11/24 08/12/24 History Laboratory Tests 08/11/24 08/11/24 08/11/24 20:28 21:02 21:03 WBC 12.3 H K/mm3 (4.5-10.0) RBC 5.08 M/mm3 (4.2-5.4) Hgb 15.1 H g/dL (12.0-15.0) Hct 46.7 % (37.0-47.0) MCV 91.9 fl (80-100) MCH 29.7 pg (26-34) MCHC 32.3 g/dl (32-36) RDW 13.9 % (11.5-14.5) Plt Count 162 k/mm3 (150-375) MPV 9.5 fl (7.4-10.4) Immature Gran % (Auto) 0.4 % (0-0.5) Neut % (Auto) 69.2 % (45.5-73.1) Lymph % (Auto) 23.2 % (18.3-44.2) [place] % (Auto) 5.7 % (2.6-8.5) Eos % (Auto) 1.1 % (0-4.4) Baso % (Auto) 0.4 % (0.2-1.2) Lymph # (Auto) 2.85 K/mm3 (0.9-3.2) [place] # (Auto) 0.7 H K/mm3 (0.1-0.6) Eos # (Auto) 0.1 K/mm3 (0-0.3) Baso # (Auto) 0.1 K/mm3 (0.0-0.1) Abs Immat Gran (auto) 0.05 H K/mm3 (0.00-0.031) Absolute Neuts (auto) 8.5 H K/mm3 (1.3-6.7) Absolute Nucleated RBC 0.000 K/mm3 (0.0-0.012) Nucleated RBC % 0.0 % (0.0-0.2) PT 13.0 Seconds (11.1-14.7) INR 0.9 APTT 29.2 Seconds (22.3-36.8) Sodium 141 mmol/L (137-145) Potassium 3.0 L mmol/L (3.4-5.0) Chloride 102 mmol/L (98-107) Carbon Dioxide 30 mmol/L (22-30) Anion Gap 9 mmol/L (4-12) BUN 12 mg/dL (7-17) Creatinine 0.71 mg/dL (0.7-1.0) Estim Creat Clear Calc 47 ml/min Estimated GFR > 60 (59 - ) Glucose 125 H mg/dL (65-110) Calcium 9.1 mg/dL (8.4-10.2) Magnesium 2.0 mg/dL (1.6-2.3) Total Bilirubin 0.7 mg/dL (0.2-1.3) AST 26 U/L (14-36) ALT 16 U/L (6-35) Alkaline Phosphatase 96 U/L (38-126) Total Protein 7.0 g/dL (6.3-8.2) Albumin 4.0 g/dL (3.5-5.1) Urine Color Yellow (Yellow) Urine Appearance Clear (Clear) Urine pH 6.5 (5.0-9.0) Ur Specific [place] 1.009 (1.001-1.035) Urine Protein Negative mg/dL (Negative) Urine Glucose (UA) Negative mg/dL (Negative) Urine Ketones Trace H mg/dL (Negative) Ur Blood (Man) Negative (Negative) Urine Nitrate Negative (Negative) Urine Bilirubin Negative (Negative) Urine Urobilinogen 0.2 mg/dL (<2.0) Leukocyte Esterase Rfl Trace H FELIPE/UL (Negative) Urine RBC 0-2 /hpf (0-2) Urine WBC 11-20 H /hpf (0-3) Ur Squamous Epith Cells None seen /hpf (Few) Urine Bacteria 2+ H /hpf Urine Casts 0-2 Patient hx anesthesia problems: none Family hx anesthesia problems: none Results Review: All pre-operative results and documents have been reviewed as part of the pre-operative evaluation. [facility] Family History Family History Mother Cancer Social History Social History Smoking packs per day: 1 Smoking cigarettes per day: 20.0 Smoking status: Former smoker Tobacco type: cigarettes Alcohol intake: never Substance use: never Substance use type: does not use Do You Feel Safe in your Home?: Yes Lack of Transportation: No Lack of Food: Never True Current Housing: I Have Housing Concerned About Future Housing: No Difficulty Paying Gas/Electric Bills: No Difficulty Paying for Meds: No Currently Unemployed: No Education: High School Diploma/GED Difficulty w/ Childcare or Family Care: No Spiritual care concerns: No Anes - Eval Final PreProcedure Day of Procedure 08/12/24 14:21 Patient weight: normal Heart: regular rate and rhythm Lungs: clear to auscultation Airway: Mallampati scale class II and special considerations (Edentulous upper, missing several on the lower aspect. ) Neurological: alert and oriented Last oral intake: >/= 8 hours ASA classification: III Emergent: no Anesthetic plan: proceed Anesthesia type and monitoring: general LMA and standard monitoring Results Review: All pre-operative results and documents have been reviewed as part of the pre-operative evaluation. HTN, chronic pain. Pt and daughter report pacemaker in place with nml functioning and pt sees Dr Garibay in [place]. I have reached out to the office for any further information. Informed Consent: The patient's anesthetic plan and its attendant risks and benefits were discussed with the patient/family/POA. Questions were solicited and answers provided to the satisfaction of the patient/family/POA.
--- NOTE | 2024-08-12 14:24 | WPDHPUPDATE1 ---
History and Physical Update Update Date/Time: 08/12/24 14:24 History and Physical has been reviewed, including an updated exam of the patient. There are NO changes in the patient's condition. Risks, benefits, and alternatives have been discussed and questions answered. Patient agrees to proceed with procedure.
[2024-08-12] MEDS: TRANEXAMIC ACID 1,000MG/ISO100 1,000 MG/100 ML BAG 200 MG IVPB (14:34)
[2024-08-12 14:42] LABS: Anion Gap 4 mmol/L (4-12); Blood Urea Nitrogen 9 mg/dL (7-17); Calcium 8.6 mg/dL (8.4-10.2); Carbon Dioxide 30 mmol/L (22-30); Chloride 103 mmol/L (98-107); Estimated CRCL calculation 56 ml/min; Estimated Glomerular Filt Rate > 60; Glucose 101 mg/dL (65-110); Potassium 3.8 mmol/L (3.4-5.0); Sodium 137 mmol/L (137-145)
[2024-08-12] MEDS: ceFAZolin 2 GM/D5W 50 ML 2 GM/50 ML BAG IVPB ×2 (15:07→20:20)
--- NOTE | 2024-08-12 16:11 | W.PM.PROC2 ---
Procedure Note - Detailed Date of Procedure 08/12/24 Pre-op Diagnosis Left intertrochanteric hip fracture Post-op Diagnosis Same Procedure Performed Open reduction internal fixation with a trochanteric nail Surgeon Rudy Salvador MD [employer] [place] Anesthesia General Indications Hip Fracture and Pain Description of Procedure Patient brought to operating room 9. A general anesthetic was administered. She was placed on the fracture table and sterilely prepped and draped in usual manner. I had difficulty getting the fracture lined up anterior to posterior longitudinal. A incision was made over the tip of the trochanter. Dissection carried down to the trochanter. I entered the femoral shaft with an awl. A guide kirsten was placed. A single step Reamer used. An 11 x 130 kirsten was placed and a 100 millimeters screw placed. X-rays in the AP and lateral plane demonstrated excellent alignment and fixation of the fracture. The wound irrigated, hemostasis obtained, and closed with #2 Vicryl, 2-0 Vicryl, and lacy. A sterile dressing was applied. The patient tolerated the procedure well.\ [employer] Estimated Blood Loss 200 Drains No Packing No Complications No immediate complications Condition Stable Disposition PACU [facility] Billing Surgery - Charge Forward: Surgery Billing ([id number] Troch Nail for IT Fx)
[2024-08-12] MEDS: LACTATED RINGERS 1,000 ML 30 ML IV CONT (16:37)
[2024-08-12] MEDS: PREGABALIN (*CRX) 50 MG CAPSULE 100 MG PO (18:16)
[2024-08-12] MEDS: traZODone HCL 50 MG TABLET 100 MG PO (20:23)
[2024-08-12] MEDS: HYDROcodone/acetaminophen (*CRX) 7.5-325 MG TABLET 1 TAB PO (20:23)
[2024-08-12] MEDS: lamoTRIgine 25 MG TABLET PO (20:23)
[2024-08-12] MEDS: lamoTRIgine 100 MG TABLET PO (20:23)
[2024-08-13] VITALS (14 sets, daily range): BP systolic 105–134; BP diastolic 51–84; PULSE 73–83; RESP 1–18; TEMP 36.4–36.8; O2SAT 92–98
[2024-08-13 06:01] LABS: Basophils Percent Auto 0.3 % (0.2-1.2); Hematocrit 35.4 % (37.0-47.0); Hemoglobin 11.6 g/dL (12.0-15.0); Immature Granulocyte Absolute 0.02 K/mm3 (0.00-0.031); Immature Granulocyte Percent A 0.3 % (0-0.5); Immature Platelet Fraction Pct 2.9 % (0.9-11.2); Lymphocytes Absolute Auto 0.68 K/mm3 (0.9-3.2); Lymphocytes Percent Auto 8.8 % (18.3-44.2); Mean Corpuscular HGB Conc 32.8 g/dl (32-36); Mean Corpuscular Hemoglobin 30.3 pg (26-34); Mean Corpuscular Volume 92.4 fl (80-100); Mean Platelet Volume 9.9 fl (7.4-10.4); Monocytes Absolute Auto 0.4 K/mm3 (0.1-0.6); Monocytes Percent Auto 4.8 % (2.6-8.5); Neutrophils Absolute Auto 6.6 K/mm3 (1.3-6.7); Neutrophils Percent Auto 85.8 % (45.5-73.1); Platelet Count Result 134 k/mm3 (150-375); Red Blood Count 3.83 M/mm3 (4.2-5.4); Red Cell Distribution Width 13.6 % (11.5-14.5); White Blood Count 7.7 K/mm3 (4.5-10.0)
[2024-08-13] MEDS: ceFAZolin 2 GM/D5W 50 ML 2 GM/50 ML BAG IVPB ×2 (06:08→12:57)
[2024-08-13] MEDS: PREGABALIN (*CRX) 50 MG CAPSULE 100 MG PO ×3 (06:09→17:12)
[2024-08-13 06:13] LABS: Anion Gap 4 mmol/L (4-12); Blood Urea Nitrogen 11 mg/dL (7-17); Calcium 8.5 mg/dL (8.4-10.2); Carbon Dioxide 28 mmol/L (22-30); Chloride 102 mmol/L (98-107); Estimated CRCL calculation 52 ml/min; Estimated Glomerular Filt Rate > 60; Glucose 135 mg/dL (65-110); Potassium 3.9 mmol/L (3.4-5.0); Sodium 134 mmol/L (137-145)
--- NOTE | 2024-08-13 07:24 | PM.PNORT ---
Progress Note: A&P Assessment and Plan (1) Closed intertrochanteric fracture of left femur: Qualifiers: Encounter type: initial encounter Fracture alignment: displaced Qualified Code(s): S72.142A - Displaced intertrochanteric fracture of left femur, initial encounter for closed fracture Code(s): S72.142A - Displaced intertrochanteric fracture of left femur, initial encounter for closed fracture Status: Acute Assessment and Plan: Patient underwent open reduction internal fixation for an intertrochanteric fracture on the left. She is progressing nicely. Will ambulate her today. Shows an extra help because of nerve damage. I have discussed this with patient and her family previously. Subjective Subjective Date/Time Seen: 08/13/24 07:24 Post Op day: 1 Principal diagnosis: Left intertrochanteric fracture status post troch nail Review of Systems Review of Systems: Fall, unable to stand up, unable to bear weight on left leg Exam Narrative: Patient can wiggle her toes. She does have weakness to previous nerve damage. Pain is improved. Objective Data Vital Signs Vital Signs: Vital Signs - 24 hr 08/12/24 08:00 08/12/24 08:00 08/12/24 12:00 Temperature Pulse Rate 77 72 Respiratory Rate Blood Pressure Pulse Oximetry 94 Oxygen Delivery Nasal Cannula Oxygen Flow Rate 3 08/12/24 13:20 08/12/24 16:37 08/12/24 16:50 Temperature 99.5 F 97.9 F Pulse Rate 81 86 84 Respiratory Rate 16 22 H 16 Blood Pressure 128/91 H 166/90 H 166/75 H Pulse Oximetry 95 94 93 Oxygen Delivery Nasal Cannula Simple Face Mask Simple Face Mask Oxygen Flow Rate 3 10 10 08/12/24 17:05 08/12/24 17:10 08/12/24 17:25 Temperature Pulse Rate 83 79 Respiratory Rate 16 14 Blood Pressure 176/79 H 160/71 H 151/76 H Pulse Oximetry 92 91 Oxygen Delivery Simple Face Mask Nasal Cannula Nasal Cannula Oxygen Flow Rate 10 3 3 08/12/24 17:35 08/12/24 17:50 08/12/24 18:11 Temperature 97.8 F 97.9 F Pulse Rate 81 87 80 Respiratory Rate 14 16 18 Blood Pressure 143/65 H 150/67 H 152/68 H Pulse Oximetry 94 93 92 Oxygen Delivery Nasal Cannula Nasal Cannula Oxygen Flow Rate 3 3 08/12/24 18:25 08/12/24 20:00 08/12/24 20:00 Temperature 97.9 F Pulse Rate 81 76 77 Respiratory Rate 18 16 Blood Pressure 139/73 Pulse Oximetry 94 96 Oxygen Delivery Nasal Cannula Oxygen Flow Rate 3 08/12/24 21:01 08/12/24 23:31 08/12/24 23:41 Temperature 98.3 F 98.6 F 98.4 F Pulse Rate 74 77 96 Respiratory Rate 16 16 16 Blood Pressure 110/66 125/66 137/74 Pulse Oximetry 94 96 96 Oxygen Delivery Oxygen Flow Rate 08/13/24 00:00 08/13/24 03:41 08/13/24 04:00 Temperature 98.2 F Pulse Rate 76 81 76 Respiratory Rate 18 Blood Pressure 131/79 Pulse Oximetry 94 Oxygen Delivery Oxygen Flow Rate Intake/Output Intake/Output: Intake & Output 08/10/24 08/11/24 08/12/24 08/13/24 23:59 23:59 23:59 23:59 Intake Total 50 2300 100 Output Total 1760 700 Balance 50 540 -600 Meds/Results Medications: Active Medications Generic Name Dose Route Start Last Admin Trade Name Freq PRN Reason Stop Dose Admin Hydrocodone Bitart/Acetaminophen 1 tab 08/12/24 17:56 Hydrocodone/Acetaminophen (*Crx) 5-325 Mg Tablet PO Q4H PRN Pain Rated 4-6 Hydrocodone Bitart/Acetaminophen 1 tab 08/12/24 17:56 08/12/24 20:23 Hydrocodone/Acetaminophen (*Crx) 7.5-325 Mg Tablet PO 1 tab Q4H PRN Administration Pain Rated 7-10 Amlodipine Besylate 10 mg 08/13/24 09:00 Amlodipine Besylate 10 Mg Tablet PO DAILY SEPIDE[facility] Bupropion HCl 300 mg 08/13/24 09:00 Bupropion Hcl Xl (24 Hr) 150 Mg Tabcr PO DAILY SEPIDE[facility] Dextrose 12.5 gm 08/11/24 22:05 Dextrose 50% 25 Gm/50 Ml Syringe IV PUSH PRN PRN Hypoglycemia Protocol Glucagon 1 mg 08/11/24 22:05 Glucagon For Inj 1 Mg Vial IM PRN PRN Hypoglycemia Protocol Glucose 15 gm 08/11/24 22:05 Glucose Oral Gel 15 Gm Of Glucse In 37.5 Gm Tube PO PRN PRN Hypoglycemia Protocol Hydromorphone HCl 1 mg 08/12/24 17:56 Hydromorphone Hcl Inj (*Crx) 1 Mg/Ml Syr IV PUSH Q2H PRN Breakthrough Pain Rated 7-10 or NPO Hydromorphone HCl 0.5 mg 08/12/24 17:56 Hydromorphone Hcl Inj (*Crx) 1 Mg/Ml Syr IV PUSH Q2H PRN Breakthrough Pain Rated 4-6 or NPO Hydroxyzine Pamoate 50 mg 08/12/24 17:56 Hydroxyzine Pamoate 25 Mg Capsule PO Q4H PRN Itching Sodium Chloride 1,000 mls @ 100 mls/hr 08/11/24 21:35 08/12/24 20:24 Normal Saline Iv IV CONT 100 mls/hr .Q10H SEPIDEH Administration Ceftriaxone Sodium 1 gm in 50 mls @ 100 mls/hr 08/12/24 21:00 08/12/24 20:21 Rocephin 1 Gm/Ns 50 Ml IVPB 100 mls/hr Q24H SEPIDEH Administration Dextrose 1,000 mls @ 100 mls/hr 08/11/24 22:05 Dextrose 5% 1,000 Ml IVPB PRN PRN Hypoglycemia Protocol Cefazolin Sodium 2 gm in 50 mls @ 100 mls/hr 08/12/24 21:00 08/13/24 06:08 Ancef 2 Gm/D5w 50 Ml IVPB 08/13/24 13:29 100 mls/hr Q8H SEPIDEH Administration Ibuprofen 800 mg in 200 mls @ 400 mls/hr 08/12/24 17:56 Caldolor 800 Mg/200 Ml IVPB Q6H PRN Breakthrough Pain Rated 1-3 or NPO Lamotrigine 25 mg 08/12/24 21:00 08/12/24 20:23 Lamotrigine 25 Mg Tablet PO 25 mg Q12HR SEPIDEH Administration Lamotrigine 100 mg 08/12/24 21:00 08/12/24 20:23 Lamotrigine 100 Mg Tablet PO 100 mg Q12HR SEPIDEH Administration Mirabegron 50 mg 08/13/24 09:00 Mirabegron 50 Mg Er Tablet PO DAILY SEPIDEH Morphine Sulfate 2 mg 08/11/24 22:05 08/12/24 09:09 Morphine Sulfate (*Crx) 2 Mg/Ml Inj IV PUSH 2 mg Q2H PRN Administration Pain Rated 7-10 Naloxone HCl 0.1 mg 08/12/24 17:56 Naloxone Hcl 0.4 Mg/Ml Vial IV PUSH Q2M PRN Opiate Reversal Ondansetron HCl 4 mg 08/12/24 17:56 Ondansetron Inj 4 Mg/2 Ml Vial IV PUSH Q4H PRN Nausea And Vomiting Polyethylene Glycol 17 gm 08/13/24 09:00 Polyethylene Glycol 3350 17 Gm Powd.Pack PO QAM [facility] Pregabalin 100 mg 08/12/24 18:00 08/13/24 06:09 Pregabalin (*Crx) 50 Mg Capsule PO 100 mg Q6HR SEPIDEH Administration Rivaroxaban 10 mg 08/13/24 09:00 Rivaroxaban 10 Mg Tablet PO 09/16/24 09:01 DAILY [facility] Senna/Docusate Sodium 2 tab 08/12/24 17:56 08/12/24 18:12 Senna/Docusate Sodium Tablet PO Not Given BID [facility] Tramadol HCl 50 mg 08/12/24 17:56 Tramadol Hcl (*Crx) 50 Mg Tablet PO Q4H PRN Pain Rated 1-3 Trazodone HCl 100 mg 08/12/24 21:00 08/12/24 20:23 Trazodone Hcl 50 Mg Tablet PO 100 mg HS SEPIDEH Administration Radiology Results: ITS Impressions Chest X-Ray 08/11/24 18:23 IMPRESSION: No focal infiltrate or effusion. Hip/Pelvis X-Ray 08/11/24 18:24 IMPRESSION: Acute intertrochanteric fracture, as detailed above. Intraoperative X-Ray 08/12/24 16:23 IMPRESSION: 1. Fluoroscopy utilized during reduction and internal fixation of a comminuted intertrochanteric fracture of the proximal left femur. Labs Labs: Laboratory Results - last 24 hr 08/12/24 08/13/24 14:29 05:33 WBC 7.7 RBC 3.83 L Hgb 11.6 L D Hct 35.4 L MCV 92.4 MCH 30.3 MCHC 32.8 RDW 13.6 Plt Count 134 L MPV 9.9 Immature Gran % (Auto) 0.3 Neut % (Auto) 85.8 H Lymph % (Auto) 8.8 L [place] % (Auto) 4.8 Eos % (Auto) 0.0 Baso % (Auto) 0.3 Lymph # (Auto) 0.68 L [place] # (Auto) 0.4 Eos # (Auto) 0.0 Baso # (Auto) 0.0 Abs Immat Gran (auto) 0.02 Absolute Neuts (auto) 6.6 Absolute Nucleated RBC 0.000 Nucleated RBC % 0.0 % Immature Plt Fraction 2.9 Sodium 137 134 L Potassium 3.8 3.9 Chloride 103 102 Carbon Dioxide 30 28 Anion Gap 4 4 BUN 9 11 Creatinine 0.62 L 0.68 L Estim Creat Clear Calc 56 52 Estimated GFR > 60 > 60 Glucose 101 135 H Calcium 8.6 8.5 Blood Type O Negative Antibody Screen Negative
[2024-08-13] MEDS: lamoTRIgine 100 MG TABLET PO ×2 (08:02→20:57)
[2024-08-13] MEDS: amLODIPine BESYLATE 10 MG TABLET PO (08:02)
[2024-08-13] MEDS: buPROPion HCL XL (24 HR) 150 MG TABCR 300 MG PO (08:02)
[2024-08-13] MEDS: lamoTRIgine 25 MG TABLET PO ×2 (08:03→20:57)
[2024-08-13] MEDS: MIRABEGRON 50 MG ER TABLET PO (08:03)
[2024-08-13] MEDS: RIVAROXABAN 10 MG TABLET PO (08:03)
[2024-08-13] MEDS: HYDROcodone/acetaminophen (*CRX) 7.5-325 MG TABLET 1 TAB PO ×2 (08:03→13:00)
[2024-08-13] MEDS: polyethylene glycoL 3350 17 GM POWD.PACK PO (08:03)
--- NOTE | 2024-08-13 10:51 | P.PNIM_ITS ---
Progress Note: A&P Assessment and Plan (1) Closed intertrochanteric fracture of left femur: Qualifiers: Encounter type: initial encounter Fracture alignment: displaced Qualified Code(s): S72.142A - Displaced intertrochanteric fracture of left femur, initial encounter for closed fracture Code(s): S72.142A - Displaced intertrochanteric fracture of left femur, initial encounter for closed fracture Status: Acute Assessment and Plan: Admit patient to regular medical floor Bed rest Pain management Orthopedic surgery consult- Recommend Open Reduction, Internal Fixation of the LEFT hip later today 08/13- underwent open reduction internal fixation for an intertrochanteric fracture on the left. Pain control, PT/OT (2) UTI (urinary tract infection): Qualifiers: Hematuria presence: without hematuria Urinary tract infection type: acute cystitis Qualified Code(s): N30.00 - Acute cystitis without hematuria Code(s): N39.0 - Urinary tract infection, site not specified Status: Acute Assessment and Plan: Patient started on Rocephin Cultures in progress-no growth- will stop Rocephin Typically she knows that she has UTI if she is more confused- since she doesnot have normal symptoms she was not confused this admission and fell while trying to straight cath herself will stop rocephin and monitor mental status her urologist started her on estrogen cream but she was not able to use it as she was confused as to how to apply will start here and hopefully she will feel more comfortable using it at home to prevent UTI's in the future (3) Fall from ground level: Code(s): W18.30XA - Fall on same level, unspecified, initial encounter Status: Acute Assessment and Plan: No loss of consciousness CT of the head reviewed Fall precautions Plan Xarelto x [address] Salvador (end date- 09/16 9 am) Time Spent With Patient Time with patient: 25 - 35 minutes Subjective Date/time seen: 08/13/24 10:51 Interval history: Fall 74-year-old female with PMH/o hypertension, chronic pain. Patient was at doc ivett's office when she had a fall while in the bathroom trying to get a sample of urine patient had a mechanical fall ground level she was unable to get up on her on. Patient was brought to the emergency room for evaluation preliminary workup was significant for left hip fracture a urinalysis was significant for leukocytes present in it. Patient has been admitted for further evaluation management and treatment. Ortho was consulted and pt was seen-DR Salvador- Recommend Open Reduction, Internal Fixation of the LEFT hip later today 08/13- underwent open reduction internal fixation for an intertrochanteric fracture on the left. She is progressing nicely. PT/OT today. Pain is controlled. Review of Systems Review of Systems: Fall, unable to stand up, unable to bear weight on left leg Exam Narrative: Patient is laying in a stretcher Const: General: comfortable, no acute distress, well developed, alert, awake and average body habitus Nutritional Appearance: average body habitus Orientation/consciousness: patient oriented x3 HENMT: Head: normal to inspection, normocephalic and atraumatic Ears: hearing grossly normal bilaterally Face/Nose/Sinus: normal facial exam Face and sinus: normal facial exam Eyes: General: appearance normal, both eyes and all related structures Pupils: Equal, round and reactive pupils present EOM: EOMs intact bilaterally Neck: Neck: full ROM, no lymphadenopathy and no JVD Thyroid: thyroid normal Lymphatic: no lymphadenopathy noted Resp: Effort & Inspection: normal respiratory effort and able to speak in complete sentences Auscultation: clear to auscultation bilaterally Cardio: Jugular venous distension: no JVD Rate: regular rate Rhythm: regular rhythm Heart sounds: S1 normal heart sound present and S2 normal heart sound present GI: Inspection: other (Colostomy in place) : General: Yes deferred Skin: Rashes: no rashes Wounds: no wounds Neuro: General: patient oriented x3, CN's II-XI intact bilaterally and Unable to assess gait Cranial nerves: Yes CN's II-XII intact bilaterally and Yes Equal, round and reactive pupils present Cognition (Neuro): normal cognition Speech: normal speech Gait exam (Neuro): Unable to assess gait Motor exam (neuro): 5/5 motor strength present throughout Extrem: General: normal to inspection, full ROM, no joint enlargement and no pedal edema Other: Left lower extremity externally rotated and shortened Objective Data Vital Signs Vital Signs: Vital Signs - 24 hr 08/12/24 12:00 08/12/24 13:20 08/12/24 16:37 Temperature 99.5 F 97.9 F Pulse Rate 72 81 86 Respiratory Rate 16 22 H Blood Pressure 128/91 H 166/90 H Pulse Oximetry 95 94 Oxygen Delivery Nasal Cannula Simple Face Mask Oxygen Flow Rate 3 10 08/12/24 16:50 08/12/24 17:05 08/12/24 17:10 Temperature Pulse Rate 84 83 Respiratory Rate 16 16 Blood Pressure 166/75 H 176/79 H 160/71 H Pulse Oximetry 93 92 Oxygen Delivery Simple Face Mask Simple Face Mask Nasal Cannula Oxygen Flow Rate 10 10 3 08/12/24 17:25 08/12/24 17:35 08/12/24 17:50 Temperature 97.8 F Pulse Rate 79 81 87 Respiratory Rate 14 14 16 Blood Pressure 151/76 H 143/65 H 150/67 H Pulse Oximetry 91 94 93 Oxygen Delivery Nasal Cannula Nasal Cannula Nasal Cannula Oxygen Flow Rate 3 3 3 08/12/24 18:11 08/12/24 18:25 08/12/24 20:00 Temperature 97.9 F 97.9 F Pulse Rate 80 81 76 Respiratory Rate 18 18 Blood Pressure 152/68 H 139/73 Pulse Oximetry 92 94 Oxygen Delivery Oxygen Flow Rate 08/12/24 20:00 08/12/24 21:01 08/12/24 23:31 Temperature 98.3 F 98.6 F Pulse Rate 77 74 77 Respiratory Rate 16 16 16 Blood Pressure 110/66 125/66 Pulse Oximetry 96 94 96 Oxygen Delivery Nasal Cannula Oxygen Flow Rate 3 08/12/24 23:41 08/13/24 00:00 08/13/24 03:41 Temperature 98.4 F 98.2 F Pulse Rate 96 76 81 Respiratory Rate 16 18 Blood Pressure 137/74 131/79 Pulse Oximetry 96 94 Oxygen Delivery Oxygen Flow Rate 08/13/24 04:00 08/13/24 08:00 08/13/24 08:00 Temperature Pulse Rate 76 83 Respiratory Rate 1 L Blood Pressure Pulse Oximetry 98 Oxygen Delivery Nasal Cannula Oxygen Flow Rate 3 08/13/24 08:34 Temperature Pulse Rate 80 Respiratory Rate 16 Blood Pressure 121/84 Pulse Oximetry 98 Oxygen Delivery Oxygen Flow Rate Intake/Output Intake/Output: Intake & Output 08/10/24 08/11/24 08/12/24 08/13/24 23:59 23:59 23:59 23:59 Intake Total 50 2300 340 Output Total 1760 700 Balance 50 540 -360 Meds/Results Medications: Active Medications Generic Name Dose Route Start Last Admin Trade Name Freq PRN Reason Stop Dose Admin Hydrocodone Bitart/Acetaminophen 1 tab 08/12/24 17:56 Hydrocodone/Acetaminophen (*Crx) 5-325 Mg Tablet PO Q4H PRN Pain Rated 4-6 Hydrocodone Bitart/Acetaminophen 1 tab 08/12/24 17:56 08/13/24 08:03 Hydrocodone/Acetaminophen (*Crx) 7.5-325 Mg Tablet PO 1 tab Q4H PRN Administration Pain Rated 7-10 Amlodipine Besylate 10 mg 08/13/24 09:00 08/13/24 08:02 Amlodipine Besylate 10 Mg Tablet PO 10 mg DAILY SEPIDEH Administration Bupropion HCl 300 mg 08/13/24 09:00 08/13/24 08:02 Bupropion Hcl Xl (24 Hr) 150 Mg Tabcr PO 300 mg DAILY SEPIDEH Administration Dextrose 12.5 gm 08/11/24 22:05 Dextrose 50% 25 Gm/50 Ml Syringe IV PUSH PRN PRN Hypoglycemia Protocol Glucagon 1 mg 08/11/24 22:05 Glucagon For Inj 1 Mg Vial IM PRN PRN Hypoglycemia Protocol Glucose 15 gm 08/11/24 22:05 Glucose Oral Gel 15 Gm Of Glucse In 37.5 Gm Tube PO PRN PRN Hypoglycemia Protocol Hydromorphone HCl 1 mg 08/12/24 17:56 Hydromorphone Hcl Inj (*Crx) 1 Mg/Ml Syr IV PUSH Q2H PRN Breakthrough Pain Rated 7-10 or NPO Hydromorphone HCl 0.5 mg 08/12/24 17:56 Hydromorphone Hcl Inj (*Crx) 1 Mg/Ml Syr IV PUSH Q2H PRN Breakthrough Pain Rated 4-6 or NPO Hydroxyzine Pamoate 50 mg 08/12/24 17:56 Hydroxyzine Pamoate 25 Mg Capsule PO Q4H PRN Itching Sodium Chloride 1,000 mls @ 100 mls/hr 08/11/24 21:35 08/12/24 20:24 Normal Saline Iv IV CONT 100 mls/hr .Q10H SEPIDEH Administration Ceftriaxone Sodium 1 gm in 50 mls @ 100 mls/hr 08/12/24 21:00 08/12/24 20:21 Rocephin 1 Gm/Ns 50 Ml IVPB 100 mls/hr Q24H SEPIDEH Administration Dextrose 1,000 mls @ 100 mls/hr 08/11/24 22:05 Dextrose 5% 1,000 Ml IVPB PRN PRN Hypoglycemia Protocol Cefazolin Sodium 2 gm in 50 mls @ 100 mls/hr 08/12/24 21:00 08/13/24 06:08 Ancef 2 Gm/D5w 50 Ml IVPB 08/13/24 13:29 100 mls/hr Q8H SEPIDEH Administration Ibuprofen 800 mg in 200 mls @ 400 mls/hr 08/12/24 17:56 Caldolor 800 Mg/200 Ml IVPB Q6H PRN Breakthrough Pain Rated 1-3 or NPO Lamotrigine 25 mg 08/12/24 21:00 08/13/24 08:03 Lamotrigine 25 Mg Tablet PO 25 mg Q12HR SEPIDEH Administration Lamotrigine 100 mg 08/12/24 21:00 08/13/24 08:02 Lamotrigine 100 Mg Tablet PO 100 mg Q12HR SEPIDEH Administration Mirabegron 50 mg 08/13/24 09:00 08/13/24 08:03 Mirabegron 50 Mg Er Tablet PO 50 mg DAILY SEPIDEH Administration Morphine Sulfate 2 mg 08/11/24 22:05 08/12/24 09:09 Morphine Sulfate (*Crx) 2 Mg/Ml Inj IV PUSH 2 mg Q2H PRN Administration Pain Rated 7-10 Naloxone HCl 0.1 mg 08/12/24 17:56 Naloxone Hcl 0.4 Mg/Ml Vial IV PUSH Q2M PRN Opiate Reversal Ondansetron HCl 4 mg 08/12/24 17:56 Ondansetron Inj 4 Mg/2 Ml Vial IV PUSH Q4H PRN Nausea And Vomiting Polyethylene Glycol 17 gm 08/13/24 09:00 08/13/24 08:03 Polyethylene Glycol 3350 17 Gm Powd.Pack PO 17 gm QAM SEPIDEH Administration Pregabalin 100 mg 08/12/24 18:00 08/13/24 06:09 Pregabalin (*Crx) 50 Mg Capsule PO 100 mg Q6HR SEPIDEH Administration Rivaroxaban 10 mg 08/13/24 09:00 08/13/24 08:03 Rivaroxaban 10 Mg Tablet PO 09/16/24 09:01 10 mg DAILY SEPIDEH Administration Senna/Docusate Sodium 2 tab 08/12/24 17:56 08/13/24 08:02 Senna/Docusate Sodium Tablet PO Not Given BID SEPIDE[facility] Tramadol HCl 50 mg 08/12/24 17:56 Tramadol Hcl (*Crx) 50 Mg Tablet PO Q4H PRN Pain Rated 1-3 Trazodone HCl 100 mg 08/12/24 21:00 08/12/24 20:23 Trazodone Hcl 50 Mg Tablet PO 100 mg HS [facility] Administration Radiology Results: ITS Impressions Chest X-Ray 08/11/24 18:23 IMPRESSION: No focal infiltrate or effusion. Hip/Pelvis X-Ray 08/11/24 18:24 IMPRESSION: Acute intertrochanteric fracture, as detailed above. Intraoperative X-Ray 08/12/24 16:23 IMPRESSION: 1. Fluoroscopy utilized during reduction and internal fixation of a comminuted intertrochanteric fracture of the proximal left femur. Labs Labs: Laboratory Results - last 24 hr 08/12/24 08/13/24 14:29 05:33 WBC 7.7 RBC 3.83 L Hgb 11.6 L D Hct 35.4 L MCV 92.4 MCH 30.3 MCHC 32.8 RDW 13.6 Plt Count 134 L MPV 9.9 Immature Gran % (Auto) 0.3 Neut % (Auto) 85.8 H Lymph % (Auto) 8.8 L [place] % (Auto) 4.8 Eos % (Auto) 0.0 Baso % (Auto) 0.3 Lymph # (Auto) 0.68 L [place] # (Auto) 0.4 Eos # (Auto) 0.0 Baso # (Auto) 0.0 Abs Immat Gran (auto) 0.02 Absolute Neuts (auto) 6.6 Absolute Nucleated RBC 0.000 Nucleated RBC % 0.0 % Immature Plt Fraction 2.9 Sodium 137 134 L Potassium 3.8 3.9 Chloride 103 102 Carbon Dioxide 30 28 Anion Gap 4 4 BUN 9 11 Creatinine 0.62 L 0.68 L Estim Creat Clear Calc 56 52 Estimated GFR > 60 > 60 Glucose 101 135 H Calcium 8.6 8.5 Blood Type O Negative Antibody Screen Negative Quality VTE Prophylaxis VTE prophylaxis: mechanical ordered and pharmacologic ordered (per ortho recommendations)
[2024-08-13] MEDS: IBUPROFEN IV 800 MG/200 ML 800 MG/200 ML BAG 400 MG IVPB (11:13)
[2024-08-13] MEDS: SENNA/DOCUSATE SODIUM TABLET 2 TAB PO ×2 (11:17→17:13)
--- NOTE | 2024-08-13 14:30 | P.PNAN_ITS ---
Anes - Prog Note Post-Op Date/Time: 08/13/24 14:30 Vital Signs: Last Vital Signs Temp 36.8 C 08/13/24 03:41 Pulse 80 08/13/24 12:00 Resp 16 08/13/24 08:34 BP 121/84 08/13/24 08:34 Pulse Ox 92 08/13/24 11:43 O2 Del Method Room Air 08/13/24 11:43 O2 Flow Rate 1 08/13/24 11:36 Pain Score (VAS): 0 I/O: Intake & Output 08/12/24 08/13/24 08/13/24 23:59 07:59 15:59 Intake Total 1150 150 240 Output Total 360 700 Balance 790 -550 240 Laboratory Tests 08/13/24 05:33 08/13/24 05:33 08/12/24 08/13/24 14:29 05:33 WBC 7.7 RBC 3.83 L Hgb 11.6 L D Hct 35.4 L MCV 92.4 MCH 30.3 MCHC 32.8 RDW 13.6 Plt Count 134 L MPV 9.9 Immature Gran % (Auto) 0.3 Neut % (Auto) 85.8 H Lymph % (Auto) 8.8 L [place] % (Auto) 4.8 Eos % (Auto) 0.0 Baso % (Auto) 0.3 Lymph # (Auto) 0.68 L [place] # (Auto) 0.4 Eos # (Auto) 0.0 Baso # (Auto) 0.0 Abs Immat Gran (auto) 0.02 Absolute Neuts (auto) 6.6 Absolute Nucleated RBC 0.000 Nucleated RBC % 0.0 % Immature Plt Fraction 2.9 Sodium 137 134 L Potassium 3.8 3.9 Chloride 103 102 Carbon Dioxide 30 28 Anion Gap 4 4 BUN 9 11 Creatinine 0.62 L 0.68 L Estim Creat Clear Calc 56 52 Estimated GFR > 60 > 60 Glucose 101 135 H Calcium 8.6 8.5 Blood Type O Negative Antibody Screen Negative Microbiology 08/11/24 20:28 Urine Catheterized Urine Culture - Final Patient Feedback: Patient satisfied with anesthetic care.
[2024-08-13] MEDS: traZODone HCL 50 MG TABLET 100 MG PO (20:58)
[2024-08-14] VITALS (11 sets, daily range): BP systolic 138–141; BP diastolic 50–62; PULSE 64–79; RESP 16; TEMP 36.4–36.6; O2SAT 88–99
[2024-08-14] MEDS: PREGABALIN (*CRX) 50 MG CAPSULE 100 MG PO ×3 (06:33→17:04)
--- NOTE | 2024-08-14 08:45 | PM.IMPN ---
Progress Note: A&P Assessment and Plan (1) Closed intertrochanteric fracture of left femur: Qualifiers: Encounter type: initial encounter Fracture alignment: displaced Qualified Code(s): S72.142A - Displaced intertrochanteric fracture of left femur, initial encounter for closed fracture Code(s): S72.142A - Displaced intertrochanteric fracture of left femur, initial encounter for closed fracture Status: Acute Assessment and Plan: Admit patient to regular medical floor Bed rest Pain management Orthopedic surgery consult- Recommend Open Reduction, Internal Fixation of the LEFT hip later today 08/13- underwent open reduction internal fixation for an intertrochanteric fracture on the left. Pain control, PT/OT 08/14- pt/ot- working on placement for rehab (2) UTI (urinary tract infection): Qualifiers: Hematuria presence: without hematuria Urinary tract infection type: acute cystitis Qualified Code(s): N30.00 - Acute cystitis without hematuria Code(s): N39.0 - Urinary tract infection, site not specified Status: Acute Assessment and Plan: Patient started on Rocephin Cultures in progress-no growth- will stop Rocephin Typically she knows that she has UTI if she is more confused- since she doesnot have normal symptoms she was not confused this admission and fell while trying to straight cath herself will stop rocephin and monitor mental status her urologist started her on estrogen cream but she was not able to use it as she was confused as to how to apply will start here and hopefully she will feel more comfortable using it at home to prevent UTI's in the future (3) Fall from ground level: Code(s): W18.30XA - Fall on same level, unspecified, initial encounter Status: Acute Assessment and Plan: No loss of consciousness CT of the head reviewed Fall precautions Plan Xarelto x [address] Salvador (end date- 09/16 9 am) Time Spent With Patient Time with patient: 25 - 35 minutes Subjective Date/time seen: 08/14/24 08:45 Interval history: Fall 74-year-old female with PMH/o hypertension, chronic pain. Patient was at doctor's office when she had a fall while in the bathroom trying to get a sample of urine patient had a mechanical fall ground level she was unable to get up on her on. Patient was brought to the emergency room for evaluation preliminary workup was significant for left hip fracture a urinalysis was significant for leukocytes present in it. Patient has been admitted for further evaluation management and treatment. Ortho was consulted and pt was seen-DR Salvador- Recommend Open Reduction, Internal Fixation of the LEFT hip later today 08/13- underwent open reduction internal fixation for an intertrochanteric fracture on the left. She is progressing nicely. PT/OT today. Pain is controlled. 08/14- seen and examined. working on placement. BM yesterday, 08/13. pain is controlled. Review of Systems Review of Systems: Fall, unable to stand up, unable to bear weight on left leg Exam Narrative: Patient is laying in a stretcher Const: General: comfortable, no acute distress, well developed, alert, awake and average body habitus Nutritional Appearance: average body habitus Orientation/consciousness: patient oriented x3 HENMT: Head: normal to inspection, normocephalic and atraumatic Ears: hearing grossly normal bilaterally Face/Nose/Sinus: normal facial exam Face and sinus: normal facial exam Eyes: General: appearance normal, both eyes and all related structures Pupils: Equal, round and reactive pupils present EOM: EOMs intact bilaterally Neck: Neck: full ROM, no lymphadenopathy and no JVD Thyroid: thyroid normal Lymphatic: no lymphadenopathy noted Resp: Effort & Inspection: normal respiratory effort and able to speak in complete sentences Auscultation: clear to auscultation bilaterally Cardio: Jugular venous distension: no JVD Rate: regular rate Rhythm: regular rhythm Heart sounds: S1 normal heart sound present and S2 normal heart sound present GI: Inspection: other (Colostomy in place) : General: Yes deferred Skin: Rashes: no rashes Wounds: no wounds Neuro: General: patient oriented x3, CN's II-XI intact bilaterally and Unable to assess gait Cranial nerves: Yes CN's II-XII intact bilaterally and Yes Equal, round and reactive pupils present Cognition (Neuro): normal cognition Speech: normal speech Gait exam (Neuro): Unable to assess gait Motor exam (neuro): 5/5 motor strength present throughout Extrem: General: normal to inspection, full ROM, no joint enlargement and no pedal edema Other: Left lower extremity externally rotated and shortened Objective Data Vital Signs Vital Signs: Vital Signs - 24 hr 08/13/24 10:25 08/13/24 11:30 08/13/24 11:36 Temperature Pulse Rate Respiratory Rate Blood Pressure Pulse Oximetry 98 98 Oxygen Delivery Nasal Cannula Nasal Cannula Nasal Cannula Oxygen Flow Rate 2 3 1 08/13/24 11:43 08/13/24 12:00 08/13/24 14:00 Temperature 97.9 F Pulse Rate 80 79 Respiratory Rate 16 Blood Pressure 105/54 L Pulse Oximetry 92 93 Oxygen Delivery Room Air Oxygen Flow Rate 08/13/24 16:00 08/13/24 16:48 08/13/24 20:00 Temperature 97.5 F L Pulse Rate 75 79 Respiratory Rate 18 Blood Pressure 134/51 L Pulse Oximetry 92 Oxygen Delivery Room Air Oxygen Flow Rate 08/13/24 20:00 08/13/24 22:14 08/14/24 00:00 Temperature 97.7 F Pulse Rate 76 73 64 Respiratory Rate 16 Blood Pressure 121/58 L Pulse Oximetry 93 Oxygen Delivery Oxygen Flow Rate 08/14/24 04:00 Temperature Pulse Rate 64 Respiratory Rate Blood Pressure Pulse Oximetry Oxygen Delivery Oxygen Flow Rate Intake/Output Intake/Output: Intake & Output 08/11/24 08/12/24 08/13/24 08/14/24 23:59 23:59 23:59 23:59 Intake Total 50 2300 1110 Output Total 1760 1100 Balance 50 540 10 Meds/Results Medications: Active Medications Generic Name Dose Route Start Last Admin Trade Name Freq PRN Reason Stop Dose Admin Hydrocodone Bitart/Acetaminophen 1 tab 08/12/24 17:56 Hydrocodone/Acetaminophen (*Crx) 5-325 Mg Tablet PO Q4H PRN Pain Rated 4-6 Hydrocodone Bitart/Acetaminophen 1 tab 08/12/24 17:56 08/13/24 13:00 Hydrocodone/Acetaminophen (*Crx) 7.5-325 Mg Tablet PO 1 tab Q4H PRN Administration Pain Rated 7-10 Amlodipine Besylate 10 mg 08/13/24 09:00 08/13/24 08:02 Amlodipine Besylate 10 Mg Tablet PO 10 mg DAILY SEPIDEH Administration Bupropion HCl 300 mg 08/13/24 09:00 08/13/24 08:02 Bupropion Hcl Xl (24 Hr) 150 Mg Tabcr PO 300 mg DAILY SEPIDEH Administration Dextrose 12.5 gm 08/11/24 22:05 Dextrose 50% 25 Gm/50 Ml Syringe IV PUSH PRN PRN Hypoglycemia Protocol Estrogens Conjugated 1 applic 08/13/24 21:00 08/13/24 20:57 Estrogens, Conjugated Vaginal Cream 30 Gm VAGINAL 1 applic HS SEPIDEH Administration Glucagon 1 mg 08/11/24 22:05 Glucagon For Inj 1 Mg Vial IM PRN PRN Hypoglycemia Protocol Glucose 15 gm 08/11/24 22:05 Glucose Oral Gel 15 Gm Of Glucse In 37.5 Gm Tube PO PRN PRN Hypoglycemia Protocol Hydromorphone HCl 1 mg 08/12/24 17:56 Hydromorphone Hcl Inj (*Crx) 1 Mg/Ml Syr IV PUSH Q2H PRN Breakthrough Pain Rated 7-10 or NPO Hydromorphone HCl 0.5 mg 08/12/24 17:56 Hydromorphone Hcl Inj (*Crx) 1 Mg/Ml Syr IV PUSH Q2H PRN Breakthrough Pain Rated 4-6 or NPO Hydroxyzine Pamoate 50 mg 08/12/24 17:56 Hydroxyzine Pamoate 25 Mg Capsule PO Q4H PRN Itching Dextrose 1,000 mls @ 100 mls/hr 08/11/24 22:05 Dextrose 5% 1,000 Ml IVPB PRN PRN Hypoglycemia Protocol Ibuprofen 800 mg in 200 mls @ 400 mls/hr 08/12/24 17:56 08/13/24 11:13 Caldolor 800 Mg/200 Ml IVPB 400 mls/hr Q6H PRN Administration Breakthrough Pain Rated 1-3 or NPO Lamotrigine 25 mg 08/12/24 21:00 08/13/24 20:57 Lamotrigine 25 Mg Tablet PO 25 mg Q12HR SEPIDEH Administration Lamotrigine 100 mg 08/12/24 21:00 08/13/24 20:57 Lamotrigine 100 Mg Tablet PO 100 mg Q12HR SEPIDEH Administration Mirabegron 50 mg 08/13/24 09:00 08/13/24 08:03 Mirabegron 50 Mg Er Tablet PO 50 mg DAILY SEPIDEH Administration Morphine Sulfate 2 mg 08/11/24 22:05 08/12/24 09:09 Morphine Sulfate (*Crx) 2 Mg/Ml Inj IV PUSH 2 mg Q2H PRN Administration Pain Rated 7-10 Naloxone HCl 0.1 mg 08/12/24 17:56 Naloxone Hcl 0.4 Mg/Ml Vial IV PUSH Q2M PRN Opiate Reversal Ondansetron HCl 4 mg 08/12/24 17:56 Ondansetron Inj 4 Mg/2 Ml Vial IV PUSH Q4H PRN Nausea And Vomiting Polyethylene Glycol 17 gm 08/13/24 09:00 08/13/24 08:03 Polyethylene Glycol 3350 17 Gm Powd.Pack PO 17 gm QAM SEPIDEH Administration Pregabalin 100 mg 08/12/24 18:00 08/14/24 06:33 Pregabalin (*Crx) 50 Mg Capsule PO 100 mg Q6HR SEPIDEH Administration Rivaroxaban 10 mg 08/13/24 09:00 08/13/24 08:03 Rivaroxaban 10 Mg Tablet PO 09/16/24 09:01 10 mg DAILY SEPIDEH Administration Senna/Docusate Sodium 2 tab 08/12/24 17:56 08/13/24 17:13 Senna/Docusate Sodium Tablet PO 2 tab BID SEPIDEH Administration Tramadol HCl 50 mg 08/12/24 17:56 Tramadol Hcl (*Crx) 50 Mg Tablet PO Q4H PRN Pain Rated 1-3 Trazodone HCl 100 mg 08/12/24 21:00 08/13/24 20:58 Trazodone Hcl 50 Mg Tablet PO 100 mg HS SEPIDEH Administration Radiology Results: ITS Impressions Chest X-Ray 08/11/24 18:23 IMPRESSION: No focal infiltrate or effusion. Hip/Pelvis X-Ray 08/11/24 18:24 IMPRESSION: Acute intertrochanteric fracture, as detailed above. Intraoperative X-Ray 08/12/24 16:23 IMPRESSION: 1. Fluoroscopy utilized during reduction and internal fixation of a comminuted intertrochanteric fracture of the proximal left femur. Quality VTE Prophylaxis VTE prophylaxis: mechanical ordered and pharmacologic ordered (per ortho recommendations)
[2024-08-14] MEDS: amLODIPine BESYLATE 10 MG TABLET PO (09:22)
[2024-08-14] MEDS: buPROPion HCL XL (24 HR) 150 MG TABCR 300 MG PO (09:22)
[2024-08-14] MEDS: lamoTRIgine 25 MG TABLET PO ×2 (09:22→21:12)
[2024-08-14] MEDS: polyethylene glycoL 3350 17 GM POWD.PACK PO (09:22)
[2024-08-14] MEDS: lamoTRIgine 100 MG TABLET PO ×2 (09:22→21:12)
[2024-08-14] MEDS: MIRABEGRON 50 MG ER TABLET PO (09:22)
[2024-08-14] MEDS: SENNA/DOCUSATE SODIUM TABLET 2 TAB PO ×2 (09:22→17:04)
[2024-08-14] MEDS: RIVAROXABAN 10 MG TABLET PO (09:23)
--- NOTE | 2024-08-14 13:32 | PM.DS ---
DS: Admitting Diagnosis Discharge Date 08/14 Admitting Diagnosis fall DS: Discharge Diagnosis Discharge Diagnosis (1) Closed intertrochanteric fracture of left femur: Qualifiers: Encounter type: initial encounter Fracture alignment: displaced Qualified Code(s): S72.142A - Displaced intertrochanteric fracture of left femur, initial encounter for closed fracture Code(s): S72.142A - Displaced intertrochanteric fracture of left femur, initial encounter for closed fracture Status: Acute (2) UTI (urinary tract infection): Qualifiers: Hematuria presence: without hematuria Urinary tract infection type: acute cystitis Qualified Code(s): N30.00 - Acute cystitis without hematuria Code(s): N39.0 - Urinary tract infection, site not specified Status: Acute (3) Fall from ground level: Code(s): W18.30XA - Fall on same level, unspecified, initial encounter Status: Acute DS: Summary Hospital Course Hospital Course: This is a 74-year-old female with past medical history significant for hypertension, chronic pain. Patient was at doctor's office when she had a fall while in the bathroom trying to get a sample of urine patient had a mechanical fall ground level she was unable to get up on her on. Patient was brought to the emergency room for evaluation preliminary workup was significant for left hip fracture a urinalysis was significant for leukocytes present in it. Pain management Orthopedic surgery consult- Recommend Open Reduction, Internal Fixation of the LEFT hip later today 08/13- underwent open reduction internal fixation for an intertrochanteric fracture on the left. Pain control, PT/OT 08/14- pt/ot- working on placement for rehab. pain is well controlled Xarelto x [address] Salvador (end date- 09/16 9 am) # UTI Patient started on Rocephin Cultures in progress-no growth- will stop Rocephin Typically she knows that she has UTI if she is more confused- since she doesnot have normal symptoms she was not confused this admission and fell while trying to straight cath herself will stop rocephin and monitor mental status her urologist started her on estrogen cream but she was not able to use it as she was confused as to how to apply will start here and hopefully she will feel more comfortable using it at home to prevent UTI's in the future Last BM 08/14 Status at Discharge Functional status at discharge: uses cane/walker Overall status at discharge: patient is progressing back to baseline Time Spent with Patient Time attestation: Total time spent providing and/or coordinating discharge services: Time spent: Greater than 30 minutes Exam Narrative: Patient is laying in a stretcher Const: General: comfortable, no acute distress, well developed, alert, awake and average body habitus Nutritional Appearance: average body habitus Orientation/consciousness: patient oriented x3 HENMT: Head: normal to inspection, normocephalic and atraumatic Ears: hearing grossly normal bilaterally Face/Nose/Sinus: normal facial exam Face and sinus: normal facial exam Eyes: General: appearance normal, both eyes and all related structures Pupils: Equal, round and reactive pupils present EOM: EOMs intact bilaterally Neck: Neck: full ROM, no lymphadenopathy and no JVD Thyroid: thyroid normal Lymphatic: no lymphadenopathy noted Resp: Effort & Inspection: normal respiratory effort and able to speak in complete sentences Auscultation: clear to auscultation bilaterally Cardio: Jugular venous distension: no JVD Rate: regular rate Rhythm: regular rhythm Heart sounds: S1 normal heart sound present and S2 normal heart sound present GI: Inspection: other (Colostomy in place) : General: Yes deferred Skin: Rashes: no rashes Wounds: no wounds Neuro: General: patient oriented x3, CN's II-XI intact bilaterally and Unable to assess gait Cranial nerves: Yes CN's II-XII intact bilaterally and Yes Equal, round and reactive pupils present Cognition (Neuro): normal cognition Speech: normal speech Gait exam (Neuro): Unable to assess gait Motor exam (neuro): 5/5 motor strength present throughout Extrem: General: normal to inspection, full ROM, no joint enlargement and no pedal edema Other: Left lower extremity externally rotated and shortened Discharge Plan Discharge Attending physician on discharge: Marquita King Consulting providers: Rudy Salvador Discharging Clinician: Viki Goode [facility] [place] Activity: november shower Diet: regular Patient Instructions: Rivaroxaban (By mouth) Patient Language: Telugu Discharge Medications: New Premarin 0.625 mg/gram Cream 1 applic vaginal HS Qty: 30 0RF Xarelto 10 mg Tablet 10 mg PO DAILY Qty: 33 0RF sennosides-docusate sodium [Senokot-S] 8.6-50 mg Tablet 2 tab PO BID Qty: 30 0RF Continued hydrocodone-acetaminophen 10-325 mg tablet 1 tablet PO Q6H PRN (Reason: pain (scale score 4-6)) lamotrigine 25 mg tablet 25 mg PO Q12H trazodone 100 mg tablet 100 mg PO HS amlodipine 10 mg tablet 10 mg PO DAILY lamotrigine 100 mg tablet 100 mg PO Q12H bupropion HCl 300 mg tablet extended release 24 hr 300 mg PO DAILY pregabalin 100 mg capsule 100 mg PO Q6H mirabegron [Myrbetriq] 50 mg tablet extended release 24 hr 50 mg PO Q24H Date of admission: 08/12/24 09:04 Primary Care Provider: Aidan,Ej Ayala Admitting Provider: Gaby Larios V. Attending physician on admission: Marquita King Condition: Stable Quality VTE Prophylaxis VTE prophylaxis: mechanical ordered and pharmacologic ordered (per ortho recommendations) Hospitalist MIPS Heart Failure (Exclusion) Patient has history of Heart Transplant or Left Ventricular Assistive Device?: No IF YES, STOP HERE Heart Failure (Qualifier) Patient has current or prior documentation of LVEF less than or equal to 40%, or mod/servere depressed LVSF?: No IF NO, STOP HERE
--- NOTE | 2024-08-14 18:19 | PC.NURSE ---
Meche (daughter) called underwriter solicitation director and asked what the plan for patient was as she never received return calls from Care coordination, and Meche is unsure if [facility] accepted patient, and if they did she is not sure they want her going to [facility] as there seemed to be tension between [place] regarding patient's ability to st cath herself. Meche reports she does not want her mother going if he has to st cath herself as she is worried that she may be too weak to do at this time. Soap Mixer spoke with Ayesha at [facility] regarding st. cath issues as Meche states her mother can go if they are willing to st. cath patient. Ayesha has reached out to Kathy NAVIN liaison who is going to reach out to Meche and call with what the plan is.
--- NOTE | 2024-08-14 19:08 | PC.NURSE ---
magazine writer called Meche to see if she spoke with Kathy, She reports Kathy did call her and Parish Caicedo will be calling her tomorrow to confirm everything and set up a time for D/C
[2024-08-14] MEDS: traZODone HCL 50 MG TABLET 100 MG PO (21:12)
[2024-08-15] MEDS: PREGABALIN (*CRX) 50 MG CAPSULE 100 MG PO ×2 (06:27→13:01)
[2024-08-15 06:39] VITALS: BP 144/63; PULSE 77; RESP 16; TEMP 36.6; O2SAT 97
[2024-08-15 08:00] VITALS: PULSE 76; RESP 16; O2SAT 97
[2024-08-15] MEDS: lamoTRIgine 25 MG TABLET PO (09:00)
[2024-08-15] MEDS: buPROPion HCL XL (24 HR) 150 MG TABCR 300 MG PO (09:00)
[2024-08-15] MEDS: MIRABEGRON 50 MG ER TABLET PO (09:00)
[2024-08-15] MEDS: lamoTRIgine 100 MG TABLET PO (09:00)
[2024-08-15] MEDS: amLODIPine BESYLATE 10 MG TABLET PO (09:00)
[2024-08-15] MEDS: RIVAROXABAN 10 MG TABLET PO (09:01)
--- NOTE | 2024-08-15 13:29 | P.DS_ITS ---
DS: Admitting Diagnosis Discharge Date 08/25 Admitting Diagnosis fall DS: Summary Hospital Course Hospital Course: This is a 74-year-old female with past medical history significant for hypert ension, chronic pain. Patient was at doctor's office when she had a fall while in the bathroom trying to get a sample of urine patient had a mechanical fall ground level she was unable to get up on her on. Patient was brought to the emergency room for evaluation preliminary workup was significant for left hip fracture a urinalysis was significant for leukocytes present in it. Pain management Orthopedic surgery consult- Recommend Open Reduction, Internal Fixation of the LEFT hip later today 08/13- underwent open reduction internal fixation for an intertrochanteric fracture on the left. Pain control, PT/OT 08/14- pt/ot- working on placement for rehab. pain is well controlled Xarelto x [address] Salvador (end date- 09/16 9 am) # UTI Patient started on Rocephin Cultures in progress-no growth- will stop Rocephin Typically she knows that she has UTI if she is more confused- since she doesnot have normal symptoms she was not confused this admission and fell while trying to straight cath herself will stop rocephin and monitor mental status her urologist started her on estrogen cream but she was not able to use it as she was confused as to how to apply will start here and hopefully she will feel more comfortable using it at home to prevent UTI's in the future Pt normally straight caths herself- will continue that prn Last BM 08/14\ Pt is alert, comfortable, pain is well controlled Status at Discharge Functional status at discharge: uses cane/walker Overall status at discharge: patient is progressing back to baseline Time Spent with Patient Time attestation: Total time spent providing and/or coordinating discharge services: Time spent: Greater than 30 minutes Exam Const: General: comfortable Other: siting up in the chair Resp: Effort & Inspection: normal respiratory effort Cardio: Rate: regular rate Rhythm: regular rhythm Skin: General skin exam: normal color Discharge Plan Discharge Attending physician on discharge: Marquita King Consulting providers: Rudy Salvador Discharging Clinician: Viki Goode [facility] [place] Activity: other - see discharge instructions Diet: regular Discharge Instructions: -Partial Weight Bearing- No more than 50lbs -Daily Dressing change to left hip- 4x4 gauze with tape Patient Instructions: Rivaroxaban (By mouth) Patient Language: Hungarian Follow-up/Referrals: Rudy Salvador MD [Physician] - 2 Weeks Discharge Medications: New Premarin 0.625 mg/gram Cream 1 applic vaginal HS Qty: 30 0RF sennosides-docusate sodium [Senokot-S] 8.6-50 mg Tablet 2 tab PO BID Qty: 30 0RF Xarelto 10 mg Tablet 10 mg PO DAILY Qty: 33 0RF Continued hydrocodone-acetaminophen 10-325 mg tablet 1 tablet PO Q6H PRN (Reason: pain (scale score 4-6)) lamotrigine 25 mg tablet 25 mg PO Q12H trazodone 100 mg tablet 100 mg PO HS amlodipine 10 mg tablet 10 mg PO DAILY lamotrigine 100 mg tablet 100 mg PO Q12H bupropion HCl 300 mg tablet extended release 24 hr 300 mg PO DAILY pregabalin 100 mg capsule 100 mg PO Q6H mirabegron [Myrbetriq] 50 mg tablet extended release 24 hr 50 mg PO Q24H Date of admission: 08/12/24 09:04 Primary Care Provider: Aidan,Ej Ayala Admitting Provider: Gaby Larios V. Attending physician on admission: Marquita King Condition: Stable
[2024-08-15 13:54] VITALS: BP 105/48; PULSE 76; RESP 16; TEMP 36.5; O2SAT 100
== END 2024-08-15 16:15 | DRG 481 ==
LOC: ANHED 19:03 → ANH2MED 08-12 07:12
PROVIDERS: Anesthesiology; Orthopaedic Surgery; Admitting Provider Internal Medicine; Emergency Provider Physician Assistant; PCP Internal Medicine; Visit Provider Hospitalist
PROC: 0QS704Z Reposition Left Upper Femur with Internal Fixation Device, Open Approach (ICD-10-PCS; CPT 27245; principal; 2024-08-12 14:30)
DX: S72.142A Displaced intertrochanteric fracture of left femur, initial encounter for closed fracture (principal); N39.0 Urinary tract infection, site not specified; E87.6 Hypokalemia; G89.29 Other chronic pain; I10 Essential (primary) hypertension; Z87.891 Personal history of nicotine dependence; W18.30XA Fall on same level, unspecified, initial encounter
CPT/HCPCS: 36415; 71045; 73502; 80048; 80053; 81001; 83735; 85025; 85055; 85610; 85730; 86850; 86900; 86901; 87086; 93005; 96365; 96366; 96367; 96375; 96376; 97110; 97161; 97166; 97530; 99199; 99285; A9270; C1713; G0378; J0690; J0696; J1100; J1741; J2003; J2270; J2405; J2704; J3010; J3480; J7030; J7120